=== PATIENT | female | born 1935 | race Caucasian/White ===

== ENCOUNTER → 2017-01-04 | Outpatient (CLI) | payer MEDICARE ==
[~2017-01-04] MED LIST: ASPI325T; AVAP75TA5; COLA100C2; CORE3.12; LASI40TA; LIPI80TA; NITR0.4S; PEPC40TA; PLAV75TA2; SYNT88TA
[2017-01-04 09:50] LABS: FREE T4 1.14 NG/DL (0.76-1.46)
== END ==
LOC: M LAB 08:46
PROVIDERS: ATTEND Internal Medicine Endocrinology, Diabetes & Metabolism
DX: C73 Malignant neoplasm of thyroid gland (principal); E89.0 Postprocedural hypothyroidism

== ENCOUNTER → 2017-03-06 | Outpatient (REF) | payer MEDICARE | LOC: M LAB REF 09:35 | PROVIDERS: ATTEND Physician Assistant | DX: J02.9 Acute pharyngitis, unspecified (principal) ==

== ENCOUNTER → 2017-06-28 | Outpatient (CLI) | payer MEDICARE ==
[2017-06-28 11:20] LABS: FREE T4 1.18 NG/DL (0.76-1.46)
== END ==
LOC: M LAB 10:20
PROVIDERS: ATTEND Internal Medicine Endocrinology, Diabetes & Metabolism
DX: C73 Malignant neoplasm of thyroid gland (principal)

== ENCOUNTER → 2017-09-30 | Outpatient (CLI) | payer MEDICARE ==
--- NOTE | 2017-09-30 11:08 | REP ---
CAROTID ULTRASOUND: Real-time ultrasound evaluation and duplex Doppler interrogation of the extracranial carotid vasculature is performed. There is again mild to moderate plaquing and narrowing in the right carotid bulb and internal carotid artery without elevation of the peak systolic velocity, compatible with luminal narrowing less than 50%. Occlusion is again seen of the left internal carotid artery. There is normal direction of flow in the right vertebral artery. The left vertebral artery could not be visualized. RIGHT LEFT PK Systolic ICA 99.3 cm/s 0 End Diastolic ICA 28.5 0 PK Systolic CCA 69.5 55.3 PK Systolic ECA 84.2 90.7 ICA/CCA Ratio 1.43 0 IMPRESSION: There is again noted to be occlusion of the left internal carotid artery as seen on prior study of 09/22/2016. Luminal narrowing right ICA less than 50%. Signed by Galo Escobar MD 09/30/2017 03:47 P
== END ==
LOC: M RAD 09:42
PROVIDERS: ATTEND Surgery Vascular Surgery
DX: I65.22 Occlusion and stenosis of left carotid artery (principal)

== ENCOUNTER → 2017-12-21 | Outpatient (CLI) | payer MEDICARE ==
[2017-12-21 11:28] LABS: FREE T4 1.27 NG/DL (0.76-1.46); THYROID STIMULATING HORMONE 0.645 uIU/ML (0.358-3.740)
[2017-12-23 14:11] LABS: THRYOGLOBULIN ANTIBODIES (ATA) < 1.0 IU/mL (0.0-0.9); THYROGLOBULIN QUANTITATIVE 20.4 ng/mL (1.5-38.5)
== END ==
LOC: M LAB 09:48
DX: C73 Malignant neoplasm of thyroid gland (principal)
CPT/HCPCS: 84443

== ENCOUNTER → 2018-01-12 | Outpatient (CLI) | payer MEDICARE ==
[2018-01-12 08:37] LABS: BASO # 0.1 10^3/uL (0.0-0.2); BASO % 0.8 % (0.0-1.0); EOS # 0.2 10^3/uL (0.0-0.50); EOS % 2.5 % (0.0-3.0); HEMATOCRIT 45.3 % (36.0-47.0); HEMOGLOBIN 15.3 g/dl (12.0-16.0); IMMATURE GRANULOCYTE % 0.3 % (0-3.0); LYMPH # 1.8 10^3/uL (1.5-4.5); MEAN CORPUSCULAR HEMOGLOBIN 30.7 pg (27.0-33.0); MEAN CORPUSCULAR HGB CONC 33.8 g/dl (32.0-36.5); MONO # 0.7 10^3/uL (0.0-0.8); MONO % 10.3 % (0.0-5.0); NEUTROPHILS # 3.9 10^3/uL (1.8-7.7); NEUTROPHILS % 59.1 % (36.0-66.0); PLATELET COUNT, AUTOMATED 239 10^3/uL (150-450); RED BLOOD COUNT 4.98 10^6/uL (4.00-5.40); RED CELL DISTRIBUTION WIDTH 12.9 % (11.5-14.5); WHITE BLOOD COUNT 6.5 10^3/uL (4.0-10.0)
[2018-01-12 09:03] LABS: ALT/SGPT 28 U/L (12-78); ANION GAP 6 MEQ/L (8-16); BLOOD UREA NITROGEN 16 MG/DL (7-18); CALCIUM LEVEL 8.6 MG/DL (8.8-10.2); CARBON DIOXIDE LEVEL 31 MEQ/L (21-32); CHLORIDE LEVEL 105 MEQ/L (98-107); CHOLESTEROL LEVEL 144 MG/DL (<200); CHOLESTEROL RISK RATIO 2.823 (<5); CPK CREATINE PHOSPHOKINASE 79 U/L (26-192); CREATININE FOR GFR 0.62 MG/DL (0.55-1.30); GLOMERULAR FILTRATION RATE > 60.0 (>32); GLUCOSE, FASTING 101 MG/DL (70-100); HDL CHOLESTEROL 51 MG/DL (>40); NON-HDL-C 93 MG/DL; SODIUM LEVEL 142 MEQ/L (136-145); TRIGLYCERIDES LEVEL 245 MG/DL (<150)
[2018-01-12 09:17] LABS: ESTIMATED AVERAGE GLUCOSE 140 MG/DL (60-110); HEMOGLOBIN A1c 6.5 %
== END ==
LOC: M LAB 08:11
DX: I10 Essential (primary) hypertension (principal); E78.00 Pure hypercholesterolemia, unspecified; E11.9 Type 2 diabetes mellitus without complications
CPT/HCPCS: 84460

== ENCOUNTER → 2018-05-09 | Outpatient (REF) | payer MEDICARE ==
[2018-05-09 20:31] LABS: TOTAL PROTEIN 7.6 GM/DL (6.4-8.2)
[2018-05-10 13:29] LABS: ALBUMIN 4.35 GM/DL (3.29-5.55); ALBUMIN % 57.3 % (55.8-66.1); ALPHA-1-GLOBULIN % 3.9 % (2.9-4.9); ALPHA-2-GLOBULINS 0.86 GM/DL (0.42-0.99); ALPHA-2-GLOBULINS % 11.3 % (7.1-11.8); BETA-1-GLOBULINS 0.47 GM/DL (0.28-0.60); BETA-1-GLOBULINS % 6.2 % (4.7-7.2); BETA-2-GLOBULINS 0.45 GM/DL (0.19-0.55); BETA-2-GLOBULINS % 5.9 % (3.2-6.5); GAMMA GLOBULIN % 15.4 % (11.1-18.8); GAMMA GLOBULINS 1.17 GM/DL (0.65-1.58)
== END ==
LOC: M LAB REF 17:15
DX: M25.50 Pain in unspecified joint (principal); M85.9 Disorder of bone density and structure, unspecified
CPT/HCPCS: 84165

== ENCOUNTER → 2018-07-17 | Outpatient (CLI) | payer MEDICARE ==
[2018-07-17 11:48] LABS: FREE T4 1.25 NG/DL (0.76-1.46); THYROID STIMULATING HORMONE 0.486 uIU/ML (0.358-3.740)
[2018-07-19 10:13] LABS: THRYOGLOBULIN ANTIBODIES (ATA) < 1.0 IU/mL (0.0-0.9); THYROGLOBULIN QUANTITATIVE 19.4 ng/mL (1.5-38.5)
== END ==
LOC: M LAB 10:10
DX: C73 Malignant neoplasm of thyroid gland (principal)
CPT/HCPCS: 84443

== ENCOUNTER → 2018-09-15 | Outpatient (CLI) | payer MEDICARE | LOC: M RAD 09:58 | DX: I65.23 Occlusion and stenosis of bilateral carotid arteries (principal) | CPT/HCPCS: 93880 ==

== ENCOUNTER → 2018-10-18 | Outpatient (CLI) | payer MEDICARE ==
[2018-10-18 10:29] LABS: ESTIMATED AVERAGE GLUCOSE 143 MG/DL (60-110); HEMOGLOBIN A1c 6.6 %
[2018-10-18 10:43] LABS: ALBUMIN 3.9 GM/DL (3.2-5.2); ALBUMIN/GLOBULIN RATIO 1.08 (1.00-1.93); ALKALINE PHOSPHATASE 132 U/L (45-117); ALT/SGPT 28 U/L (12-78); ANION GAP 6 MEQ/L (8-16); AST/SGOT 19 U/L (7-37); BILIRUBIN,TOTAL 0.7 MG/DL (0.2-1.0); BLOOD UREA NITROGEN 14 MG/DL (7-18); CALCIUM LEVEL 8.4 MG/DL (8.8-10.2); CARBON DIOXIDE LEVEL 31 MEQ/L (21-32); CHLORIDE LEVEL 105 MEQ/L (98-107); CHOLESTEROL LEVEL 167 MG/DL (<200); CHOLESTEROL RISK RATIO 3.479 (<5); CPK CREATINE PHOSPHOKINASE 96 U/L (26-192); CREATININE FOR GFR 0.66 MG/DL (0.55-1.30); GLOMERULAR FILTRATION RATE > 60.0 (>32); GLUCOSE, FASTING 110 MG/DL (70-100); HDL CHOLESTEROL 48 MG/DL (>40); LDL CHOLESTEROL 49 MG/DL (<100); NON-HDL-C 119 MG/DL; SODIUM LEVEL 142 MEQ/L (136-145); TOTAL PROTEIN 7.5 GM/DL (6.4-8.2); TRIGLYCERIDES LEVEL 351 MG/DL (<150)
== END ==
LOC: M LAB 09:41
DX: E11.9 Type 2 diabetes mellitus without complications (principal); I10 Essential (primary) hypertension; E78.5 Hyperlipidemia, unspecified
CPT/HCPCS: 82550

== ENCOUNTER → 2018-12-19 | Outpatient (CLI) | payer MEDICARE ==
[2018-12-19 12:14] LABS: FREE T4 1.35 NG/DL (0.76-1.46); THYROID STIMULATING HORMONE 0.172 uIU/ML (0.358-3.740)
[2018-12-20 09:24] LABS: THYROGLOBULIN ANTIBODY < 15.0 U/ML (<60.0)
[2018-12-20 10:41] LABS: THRYOGLOBULIN ANTIBODIES (ATA) < 1.0 IU/mL (0.0-0.9)
== END ==
LOC: M LAB 10:09
PROVIDERS: ATTEND Internal Medicine Endocrinology, Diabetes & Metabolism
DX: C73 Malignant neoplasm of thyroid gland (principal)

== ENCOUNTER → 2019-03-20 | Outpatient (CLI) | payer MEDICARE ==
[2019-03-20 11:26] LABS: FREE T4 1.09 NG/DL (0.76-1.46); THYROID STIMULATING HORMONE 0.532 uIU/ML (0.358-3.740)
== END ==
LOC: M LAB 10:12
PROVIDERS: ATTEND Internal Medicine Endocrinology, Diabetes & Metabolism
DX: C73 Malignant neoplasm of thyroid gland (principal)

== ENCOUNTER → 2019-03-27 | Outpatient (CLI) | payer MEDICARE ==
[2019-03-27 13:52] LABS: HEMATOCRIT 46.7 % (36.0-47.0); HEMOGLOBIN 15.3 g/dl (12.0-15.5); MEAN CORPUSCULAR HEMOGLOBIN 30.9 pg (27.0-33.0); MEAN CORPUSCULAR HGB CONC 32.8 g/dl (32.0-36.5); MEAN CORPUSCULAR VOLUME 94.3 fl (80.0-96.0); PLATELET COUNT, AUTOMATED 231 10^3/uL (150-450); RED BLOOD COUNT 4.95 10^6/uL (4.00-5.40); WHITE BLOOD COUNT 7.9 10^3/uL (4.0-10.0)
[2019-03-27 14:18] LABS: BLOOD UREA NITROGEN 13 MG/DL (7-18); CALCIUM LEVEL 8.7 MG/DL (8.8-10.2); CARBON DIOXIDE LEVEL 26 MEQ/L (21-32); CHLORIDE LEVEL 108 MEQ/L (98-107); CREATININE FOR GFR 0.77 MG/DL (0.55-1.30); GLOMERULAR FILTRATION RATE > 60.0 (>32); GLUCOSE, FASTING 120 MG/DL (70-100); MAGNESIUM LEVEL 1.9 MG/DL (1.8-2.4); POTASSIUM SERUM 3.9 MEQ/L (3.5-5.1); SODIUM LEVEL 141 MEQ/L (136-145)
== END ==
LOC: M LAB 13:16
PROVIDERS: ATTEND Internal Medicine
DX: I48.91 Unspecified atrial fibrillation (principal)

== ENCOUNTER → 2019-07-09 | Outpatient (CLI) | payer MEDICARE ==
[2019-07-09 08:08] LABS: BASO % 0.6 % (0.0-1.0); EOS # 0.2 10^3/uL (0.0-0.50); EOS % 2.3 % (0.0-3.0); HEMATOCRIT 45.9 % (36.0-47.0); HEMOGLOBIN 15.4 g/dl (12.0-15.5); LYMPH # 1.8 10^3/uL (1.5-4.5); LYMPH % 25.7 % (24.0-44.0); MEAN CORPUSCULAR HEMOGLOBIN 31.8 pg (27.0-33.0); MEAN CORPUSCULAR HGB CONC 33.6 g/dl (32.0-36.5); MEAN CORPUSCULAR VOLUME 94.6 fl (80.0-96.0); MONO # 0.7 10^3/uL (0.0-0.8); MONO % 9.5 % (0.0-5.0); NEUTROPHILS # 4.3 10^3/uL (1.8-7.7); NEUTROPHILS % 61.6 % (36.0-66.0); PLATELET COUNT, AUTOMATED 228 10^3/uL (150-450); RED BLOOD COUNT 4.85 10^6/uL (4.00-5.40); WHITE BLOOD COUNT 6.9 10^3/uL (4.0-10.0)
[2019-07-09 08:37] LABS: BLOOD UREA NITROGEN 13 MG/DL (7-18); CALCIUM LEVEL 8.6 MG/DL (8.8-10.2); CARBON DIOXIDE LEVEL 26 MEQ/L (21-32); CHLORIDE LEVEL 106 MEQ/L (98-107); CREATININE FOR GFR 0.63 MG/DL (0.55-1.30); GLOMERULAR FILTRATION RATE > 60.0 (>32); GLUCOSE, FASTING 103 MG/DL (70-100); POTASSIUM SERUM 4.5 MEQ/L (3.5-5.1); SODIUM LEVEL 142 MEQ/L (136-145)
[2019-07-09 10:05] LABS: HEMOGLOBIN A1c 6.2 %
== END ==
LOC: M LAB 07:34
PROVIDERS: ATTEND Internal Medicine
DX: I10 Essential (primary) hypertension (principal); E11.40 Type 2 diabetes mellitus with diabetic neuropathy, unspecified

== ENCOUNTER → 2019-09-19 | Outpatient (CLI) | payer MEDICARE ==
--- NOTE | 2019-09-19 12:13 | REP ---
DUPLEX CAROTID SONOGRAPHY: HISTORY: Occlusion and stenosis. History of left internal carotid artery occlusion. Comparison study September 15, 2018. FINDINGS: Antegrade flow was observed in both vertebral arteries. RIGHT CAROTID: The right common carotid artery shows mixed plaquing. There is mild to moderate mixed plaquing in the bulb and proximal ICA on the right side. Color flow and spectral Doppler interrogation are unremarkable on the right. Velocity Chart, Right Carotid: PSV EDV Right CCA 62 cm/s Right ICA 104 cm/s 35 cm/s Right ECA 93 cm/s Right ICA/CCA ratio normal 1.7. IMPRESSION: Less than 50% category narrowing in the right ICA by Doppler velocity criteria. LEFT CAROTID: Left common carotid artery shows mild mixed plaquing. The left ICA is again noted to be occluded. There is plaquing in the bulb. Velocity Chart Left Carotid: PSV EDV Left CCA 37 cm/s Left ICA 0 0 Left ECA 83 cm/s Left ICA/CCA ratio 0. IMPRESSION: Occlusion of the left ICA Velocities have not increased significantly on the right since the prior study. Electronically Signed by Reggie Sommers MD 09/19/2019 02:15 P
== END ==
LOC: M RAD 10:16
PROVIDERS: ATTEND Surgery Vascular Surgery
DX: I65.23 Occlusion and stenosis of bilateral carotid arteries (principal); E89.0 Postprocedural hypothyroidism

== ENCOUNTER → 2019-09-19 | Outpatient (CLI) | payer MEDICARE ==
[2019-09-19 13:05] LABS: FREE T4 1.29 NG/DL (0.76-1.46); THYROID STIMULATING HORMONE 0.988 uIU/ML (0.358-3.740)
== END ==
LOC: M LAB 11:29
PROVIDERS: ATTEND Internal Medicine Endocrinology, Diabetes & Metabolism
DX: E89.0 Postprocedural hypothyroidism (principal)

== ENCOUNTER → 2019-10-08 | Outpatient (CLI) | payer MEDICARE ==
[2019-10-08 08:52] LABS: BASO # 0.1 10^3/uL (0.0-0.2); BASO % 0.9 % (0.0-1.0); EOS # 0.1 10^3/uL (0.0-0.5); EOS % 1.9 % (0.0-3.0); HEMATOCRIT 50.4 % (36.0-47.0); LYMPH # 1.8 10^3/uL (1.5-5.0); LYMPH % 33.8 % (24.0-44.0); MEAN CORPUSCULAR HEMOGLOBIN 30.8 pg (27.0-33.0); MEAN CORPUSCULAR HGB CONC 31.7 g/dl (32.0-36.5); MEAN CORPUSCULAR VOLUME 96.9 fl (80.0-96.0); MONO # 0.5 10^3/uL (0.0-0.8); MONO % 8.8 % (0.0-5.0); NEUTROPHILS # 2.9 10^3/uL (1.5-8.5); NEUTROPHILS % 54.2 % (36.0-66.0); PLATELET COUNT, AUTOMATED 235 10^3/uL (150-450); WHITE BLOOD COUNT 5.3 10^3/uL (4.0-10.0)
[2019-10-08 09:17] LABS: ALBUMIN 4.2 GM/DL (3.2-5.2); ALT/SGPT 33 U/L (12-78); BILIRUBIN,TOTAL 1.2 MG/DL (0.2-1.0); BLOOD UREA NITROGEN 13 MG/DL (7-18); CARBON DIOXIDE LEVEL 29 MEQ/L (21-32); CHLORIDE LEVEL 106 MEQ/L (98-107); CHOLESTEROL LEVEL 147 MG/DL (<200); CREATININE FOR GFR 0.82 MG/DL (0.55-1.30); GLOMERULAR FILTRATION RATE > 60.0 (>32); GLUCOSE, FASTING 94 MG/DL (70-100); HDL CHOLESTEROL 70 MG/DL (>40); LDL CHOLESTEROL 37 MG/DL (<100); NON-HDL-C 77 MG/DL; SODIUM LEVEL 143 MEQ/L (136-145); TOTAL PROTEIN 7.9 GM/DL (6.4-8.2); TRIGLYCERIDES LEVEL 201 MG/DL (<150)
[2019-10-08 10:21] LABS: HEMOGLOBIN A1c 6.2 %
== END ==
LOC: M LAB 07:48
PROVIDERS: ATTEND Internal Medicine
DX: I48.20 Chronic atrial fibrillation, unspecified (principal); I10 Essential (primary) hypertension; E03.9 Hypothyroidism, unspecified; E11.40 Type 2 diabetes mellitus with diabetic neuropathy, unspecified; E78.00 Pure hypercholesterolemia, unspecified

== ENCOUNTER 2019-10-18 14:21 | Inpatient (IN) | payer MEDICARE ==
[~2019-10-18] VITALS: Ht 154.9 cm; Wt 68.4 kg
[2019-10-18] MEDS ORDERED: ELIQ5TAB PO (14:34)
[2019-10-18] MEDS ORDERED: SPIR-10 PO (14:34)
[2019-10-18] MEDS ORDERED: GABA600T4 PO (14:34)
[2019-10-18] MEDS ORDERED: AMLO5TAB6 PO (14:34)
[2019-10-18] MEDS ORDERED: COQ-100C5 PO (14:34)
[2019-10-18] MEDS ORDERED: ONDA4TAB6 PO (14:34)
[2019-10-18] MEDS ORDERED: LOSA50TA88 PO (14:34)
[2019-10-18] MEDS ORDERED: NITR0.4S14 SL (14:34)
[2019-10-18] MEDS ORDERED: CENT1TAB PO (14:34)
[2019-10-18] MEDS ORDERED: DIAZ5TAB PO (14:34)
[2019-10-18] MEDS ORDERED: ECOT81TA5 PO (14:34)
[2019-10-18] MEDS ORDERED: VOLT1GEL15 TOP (14:34)
--- NOTE | 2019-10-18 15:11 | REP ---
Two-view chest: 10/18/2019. Indication: Dyspnea. Comparison: 08/08/2016. Findings: There is no air space consolidation. No pleural effusion or pneumothorax are present. Postoperative sequelae are noted status post median sternotomy. Cardiomediastinal silhouette is stable. Small granuloma within the right lung base is unchanged. Impression: No acute cardiopulmonary process. Electronically Signed by César Yang DO 10/18/2019 03:03 P
[2019-10-18 15:37] LABS: BASO % 0.5 % (0.0-1.0); EOS % 0.5 % (0.0-3.0); HEMATOCRIT 43.9 % (36.0-47.0); HEMOGLOBIN 14.6 g/dl (12.0-15.5); LYMPH % 12.1 % (24.0-44.0); MEAN CORPUSCULAR HEMOGLOBIN 31.5 pg (27.0-33.0); MEAN CORPUSCULAR HGB CONC 33.3 g/dl (32.0-36.5); MEAN CORPUSCULAR VOLUME 94.8 fl (80.0-96.0); MONO # 0.8 10^3/uL (0.0-0.8); MONO % 9.9 % (0.0-5.0); NEUTROPHILS # 6.2 10^3/uL (1.5-8.5); NEUTROPHILS % 76.8 % (36.0-66.0); PLATELET COUNT, AUTOMATED 182 10^3/uL (150-450); RED BLOOD COUNT 4.63 10^6/uL (4.00-5.40); WHITE BLOOD COUNT 8.1 10^3/uL (4.0-10.0)
[2019-10-18 15:54] LABS: BLOOD UREA NITROGEN 9 MG/DL (7-18); CARBON DIOXIDE LEVEL 28 MEQ/L (21-32); CHLORIDE LEVEL 106 MEQ/L (98-107); CREATININE FOR GFR 0.74 MG/DL (0.55-1.30); GLOMERULAR FILTRATION RATE > 60.0 (>32); GLUCOSE, FASTING 118 MG/DL (70-100); POTASSIUM SERUM 3.5 MEQ/L (3.5-5.1); SODIUM LEVEL 140 MEQ/L (136-145)
[2019-10-18 16:09] LABS: INFLUENZA A AMPLIFICATION NEGATIVE (NEGATIVE); INFLUENZA B AMPLIFICATION NEGATIVE (NEGATIVE)
[2019-10-18] MEDS ORDERED: ISOVUE-370 76% 100ML VIAL (Q9967) As Ordered ONE (16:10)
--- NOTE | 2019-10-18 16:36 | REP ---
Clinical: Shortness of breath . Technique: Axial contrast enhanced images from the thoracic inlet to the upper abdomen using 100 ml Isovue 370 intravenous contrast material with multiplanar re-formations. Findings: Satisfactory enhancement of the pulmonary vasculature is achieved and no filling defects are identified to suggest pulmonary embolus. Atherosclerotic changes noted to the thoracic aorta without aneurysm or dissection. Cardiomegaly is appreciated with prominent pulmonary vasculature suggesting pulmonary vascular congestion along with subtle ground-glass opacities which may reflect a very early pulmonary edema. Further evaluation of the bilateral lung madrigal demonstrates minimal chronic changes along with calcified granuloma in the right base. No adenopathy. No effusion. No pneumothorax. Musculoskeletal structures without focal osseous abnormality. Impression: No evidence for pulmonary embolus. Cardiomegaly with early pulmonary vascular congestion/edema is suggested. No acute consolidation. No effusion. Electronically Signed by Juan J Marrero MD 10/18/2019 04:28 P
[2019-10-18 17:42] LABS: NT-PRO BNP 1244 PG/ML (<450)
[2019-10-18] MEDS: AZELASTINE 137MCG NASAL SPY 30 ML (ASTELIN) SCH (18:17)
--- NOTE | 2019-10-18 18:21 | ECGEPIP ---
[facility] - ED Test Date: 2019-10-18 Pat Name: HOLLEY KAN Department: Room: - Gender: Female Renal Nurse: JKb : 1935 Requested By: FERNANDO Bellamy Order Number: [id number] Reading MD: Mayank Blanton Measurements Intervals [place] Rate: 109 P: WV: 0 QRS: 75 QRSD: 109 T: 50 QT: 349 QTc: 471 Interpretive Statements ATRIAL FIBRILLATION WITH RAPID VENTRICULAR RESPONSE INDETERMINATE AXIS MINIMAL ST DEPRESSION RHYTHM/RATE CHANGE COMPARED TO 08/08/16 Electronically Signed on 10-18-2019 18:21:22 EST by Mayank Blanton
[2019-10-18] MEDS ORDERED: METOPROLOL 5 MG/5 ML VIAL IV STA (18:36)
[2019-10-18 19:11] LABS: CK-MB VALUE MASS < 1.0 NG/ML (<3.6); CPK CREATINE PHOSPHOKINASE 68 U/L (26-192); MB/CK RELATIVE INDEX 1.47 (< OR =4); THYROID STIMULATING HORMONE 0.772 uIU/ML (0.358-3.740); TROPONIN I < 0.02 NG/ML (< 0.10)
--- NOTE | 2019-10-18 19:18 | HPEPDOC ---
[facility] Medical History & Physical Date of Admission Oct 18, 2019 Date of Service: Oct 18, 2019 Primary Care Physician: Connie Hogue Attending Physician: CHRISTINA WEST MD History and Physical TIME OF SERVICE: 8:20 PM CHIEF COMPLAINT: Congestion HISTORY OF PRESENT ILLNESS: This is an 83 old female who presents with complaints of congestion affecting her chest and head, associated with sneezing, cough, shortness of breath, fever and chills for 3 days despite taking amoxicillin. She called her PCP because her symptoms were not improving, and was instructed to come to the ER for evaluation. REVIEW OF SYSTEMS: 12 point review of systems negative except as listed in HPI PAST MEDICAL/ SURGICAL HISTORY: CAD/status post angioplasty with placement of 3 stents/CABG. Dyslipidemia. Chronic hypertension. Atrial fibrillation. Status post carotid endarterectomy. Prediabetes ( A1c 6.2). Hypothyroidism status post thyroidectomy. SOCIAL HISTORY: She doesn't smoke. She lives alone FAMILY HISTORY: CAD. Diabetes. ALLERGIES: Please see below. HOME MEDICATIONS: Please see below. PHYSICAL EXAMINATION: VITAL SIGNS: Please see below. GENERAL APPEARANCE: Well-nourished, well-developed, not in apparent distress, does not appear toxic HEENT: Normocephalic, atraumatic, mucous membranes moist and pink. Nasal cannula in place CARDIOVASCULAR: Slightly tachycardic, no murmurs, rubs or gallops. Extremities warm and well-perfused. There is no lower extremity edema LUNGS: Clear to auscultation bilaterally on room air ABDOMEN: Positive bowel sounds. Abdomen is soft and nontender on palpation MUSCULOSKELETAL: Range of motion is intact in all 4 extremities INTEGUMENT: Skin is not flushed NEUROLOGICAL: Cranial nerves 2-12 are grossly intact. Speech is not dysarthric PSYCHIATRIC: Alert and oriented, able to understand and follow commands LABORATORY DATA: See below. IMAGING: Chest x-ray "Impression: No acute cardiopulmonary process." CT chest "Impression:No evidence for pulmonary embolus.Cardiomegaly with early pulmonary vascular congestion/edema is suggested.No acute consolidation. No effusion." MICROBIOLOGY: Please see below. ASSESSMENT: Ms. Mariano is a 83 -year-old with a past medical history of CAD/CABG, dyslipidemia, chronic hypertension, atrial fibrillation and hypothyroidism who will be admitted for management of A. fib with RVR, likely due to RSV infection. PLAN: 1. Atrial fibrillation with RVR. This episode was likely triggered by RSV Her HR improved transiently after she received IV metoprolol in the ER. She does not take Cardizem, metoprolol tartrate, or digoxin at home. Despite having CABG, based on her most recent echo done in 2008 she does not have coexisting systolic dysfunction Plan: Admit to telemetry/resume apixaban /IV Cardizem when necessary for heart rate above 110 / if she remains in RVR after her URI symptoms have resolved, the daytime team may consider transitioning her to PO digoxin 2. RSV. Plan: Supplemental Oxygen/will not order PRN bronchodilators to avoid worsening tachycardia / Tessalon pearls 3. Elevated BNP. The acute elevation in BNP is, likely due to combination of to rapid A. fib, older age and female sex Clinically she appears compensated. Chest x-ray did not show congestion Her echo from 2008 did not show evidence of systolic dysfunction Plan: Follow-up is and os/daily weights/ She can follow-up with her PCP for an echo on an outpatient basis 4. Chronic CAD/CABG / Dyslipidemia. Plan: Continue aspirin, atorvastatin, carvedilol, nitroglycerin when necessary 5. Chronic hypertension. Plan: Continue amlodipine, carvedilol, furosemide, losartan, and spironolactone 6. Hypothyroidism. Status post thyroidectomy Plan: Continue levothyroxine No need for DVT prophylaxis as she is on a NOAC for A. fib Disposition likely home after more than 2 midnight stay Vital Signs Vital Signs Date Time Temp Pulse Resp B/P (MAP) Pulse Ox O2 Delivery O2 Flow Rate FiO2 10/18/19 18:46 112 132/88 10/18/19 18:30 96 Room Air 10/18/19 16:34 98.7 10/18/19 16:28 20 Laboratory Data Labs 24H Laboratory Tests 2 10/18/19 15:25: Immature Granulocyte % (Auto) 0.2, Neutrophils (%) (Auto) 76.8H, Lymphocytes (%) (Auto) 12.1L, Monocytes (%) (Auto) 9.9H, Eosinophils (%) (Auto) 0.5, Basophils (%) (Auto) 0.5, Neutrophils # (Auto) 6.2, Lymphocytes # (Auto) 1.0L, Monocytes # (Auto) 0.8, Eosinophils # (Auto) 0.0, Basophils # (Auto) 0.0, Nucleated Red Blood Cells % (auto) 0.0, Anion Gap 6L, Glomerular Filtration Rate > 60.0, Calcium Level 8.0L, SA-Mcn-L-Type Natriuretic Peptide 1244H 10/18/19 15:29: Influenza Type A (RT-PCR) NEGATIVE, Influenza Type B (RT-PCR) NEGATIVE 10/18/19 18:28: Total Creatine Kinase 68, Creatine Kinase MB < 1.0, Creatine Kinase MB Relative Index 1.47, Troponin I < 0.02, Thyroid Stimulating Hormone (TSH) 0.772 CBC/BMP Laboratory Tests 10/18/19 15:25 Microbiology Microbiology 10/18/19 Respiratory Virus Panel (PCR) ([facility]), Received Pending Home Medications Scheduled Amoxicillin (Amoxicillin) 500 Mg Capsule, 500 MG PO TID STARTED 7 DAYS ON 10/17 Apixaban (Eliquis) 5 Mg Tablet, 5 MG PO BID Aspirin (Ecotrin) 81 Mg Tablet.dr, 81 MG PO DAILY Atorvastatin Calcium (Atorvastatin Calcium) 80 Mg Tablet, 80 MG PO QHS Azelastine HCl (Azelastine HCl) 0.1% [place].pump, 2 SPRAY NA BID Benzonatate (Benzonatate) 100 Mg Capsule, 200 MG PO Q8H Carvedilol (Carvedilol) 3.125 Mg Tablet, 3.125 MG PO BID Furosemide (Furosemide) 40 Mg Tablet, 40 MG PO 3XW TU, , Gabapentin (Gabapentin) 600 Mg Tablet, 600 MG PO QHS Levothyroxine Sodium (Synthroid) 88 Mcg Tablet, 88 MCG PO DAILY BRAND SYNTHROID Losartan Potassium (Losartan Potassium) 50 Mg Tablet, 50 MG PO DAILY Multivit-Min/FA/Lycopen/Lutein (Centrum Silver Tablet) 1 Each Tablet, 1 TAB PO DAILY Spironolactone (Spironolactone) 25 Mg Tablet, 12.5 MG PO DAILY Ubidecarenone (Coq-10) 100 Mg Capsule, 100 MG PO DAILY Scheduled PRN Diazepam (Diazepam) 5 Mg Tablet, 5 MG PO BID PRN for anxiety Diclofenac Sodium (Voltaren) 100 Gm Gel..gram., 1 APPLIC TOP TID PRN for PAIN APPLIED TO KNEES Docusate Sodium (Docusate Sodium) 100 Mg Capsule, 100 MG PO DAILY PRN for CONSTIPATION Famotidine (Famotidine) 20 Mg Tablet, 20 MG PO BID PRN for INDIGESTION Nitroglycerin (Nitroglycerin) 0.4 Mg Tab.subl, 1 TAB SL NITRO PRN for CHEST PAIN Ondansetron (Ondansetron Odt) 4 Mg Tab.rapdis, 4 MG PO Q6H PRN for nausea/vomiting Allergies Coded Allergies: No Known Allergies (Unverified , 02/03/04) A-FIB/CHADSVASC A-FIB History Current/History of A-Fib/PAF?: Yes Current PO Anticoag Therapy: Yes CHRISTINA WEST MD Oct 18, 2019 19:18
[2019-10-18] MEDS ORDERED: FUROSEMIDE 20 MG/2 ML VIAL (J1940) IV ONE (19:45)
[2019-10-18] MEDS ORDERED: CARV3.12 PO (19:49)
[2019-10-18] MEDS ORDERED: FURO40TA2 PO (19:49)
[2019-10-18] MEDS ORDERED: FAMO1TAB11 PO (19:49)
[2019-10-18] MEDS ORDERED: ATOR80TA59 PO (19:49)
[2019-10-18] MEDS ORDERED: SYNT88TA2 PO (19:49)
[2019-10-18] MEDS ORDERED: DOCU100C17 PO (19:49)
[2019-10-18] MEDS ORDERED: AMOX500C PO (19:51)
[2019-10-18] MEDS ORDERED: FAMOTIDINE 20 MG TAB PO PRN (20:00)
[2019-10-18] MEDS ORDERED: DOCUSATE SODIUM 100 MG CAP PO PRN (20:00)
[2019-10-18] MEDS ORDERED: NITROGLYCERIN 0.4 MG SUBL TABLET SL PRN (20:00)
[2019-10-18] MEDS ORDERED: diazePAM 5 MG TAB PO PRN (20:00)
[2019-10-18] MEDS ORDERED: ONDANSETRON 4 MG ORAL DISINTEGRATING TAB (Q0162 PER 1MG) PO PRN (20:00)
[2019-10-18] MEDS: HumaLOG INSULIN (NovoLOG) PER UNIT SC SCH (21:00)
[2019-10-18 21:20] VITALS: BP 130/80
[2019-10-18] MEDS ORDERED: GLUCOSE 4 GM CHEW TABLET PO PRN (22:00)
[2019-10-18] MEDS ORDERED: GLUCAGON FOR INJ 1 MG VIAL (J1610) SC PRN (22:00)
[2019-10-18] MEDS ORDERED: DEXTROSE 50% 50 ML SYRINGE IV PRN (22:00)
[2019-10-18] MEDS: ATORVASTATIN 20 MG TAB PO SCH (22:24)
[2019-10-18] MEDS: BENZONATATE 100 MG CAP PO SCH (22:24)
[2019-10-18] MEDS: APIXABAN 5 MG TAB (ELIQUIS) PO SCH (22:25)
[2019-10-18] MEDS: CARVedilol 3.125 MG TAB PO SCH (22:25)
[2019-10-18] MEDS: GABAPENTIN 300 MG CAP PO SCH (22:25)
[2019-10-19] VITALS (7 sets, daily range): BP systolic 99–131; BP diastolic 59–85
[2019-10-19] MEDS: ACETAMINOPHEN TAB 650MG DOSE (2X325MG) PO PRN ×2 (01:03→20:55)
[2019-10-19] MEDS: BENZONATATE 100 MG CAP PO SCH ×3 (05:25→21:03)
[2019-10-19] MEDS: LEVOTHYROXINE 88MCG TABLET (0.088 MG) PO SCH (05:25)
[2019-10-19 06:10] LABS: HEMOGLOBIN 14.4 g/dl (12.0-15.5); MEAN CORPUSCULAR HEMOGLOBIN 31.2 pg (27.0-33.0); MEAN CORPUSCULAR HGB CONC 33.5 g/dl (32.0-36.5); MEAN CORPUSCULAR VOLUME 93.3 fl (80.0-96.0); PLATELET COUNT, AUTOMATED 177 10^3/uL (150-450); RED BLOOD COUNT 4.61 10^6/uL (4.00-5.40); WHITE BLOOD COUNT 7.6 10^3/uL (4.0-10.0)
[2019-10-19 06:32] LABS: BLOOD UREA NITROGEN 13 MG/DL (7-18); CALCIUM LEVEL 8.4 MG/DL (8.8-10.2); CARBON DIOXIDE LEVEL 29 MEQ/L (21-32); CHLORIDE LEVEL 105 MEQ/L (98-107); CREATININE FOR GFR 0.73 MG/DL (0.55-1.30); GLOMERULAR FILTRATION RATE > 60.0 (>32); GLUCOSE, FASTING 114 MG/DL (70-100); MAGNESIUM LEVEL 2.1 MG/DL (1.8-2.4); POTASSIUM SERUM 3.6 MEQ/L (3.5-5.1); SODIUM LEVEL 138 MEQ/L (136-145)
[2019-10-19] MEDS: HumaLOG INSULIN (NovoLOG) PER UNIT SC SCH ×4 (07:30→20:58)
[2019-10-19] MEDS: ASPIRIN 81 MG ENTERIC TAB PO SCH (09:00)
[2019-10-19] MEDS: CARVedilol 3.125 MG TAB PO SCH ×2 (09:00→20:54)
[2019-10-19] MEDS ORDERED: amLODIPine 5 MG TAB PO SCH (09:00)
[2019-10-19] MEDS: MULTIVITAMINS/MINERALS THERAP 1 TAB PO SCH (10:03)
[2019-10-19] MEDS: SPIRONOLACTONE 12.5MG PER 1/2 TABLET PO SCH (10:03)
[2019-10-19] MEDS: APIXABAN 5 MG TAB (ELIQUIS) PO SCH ×2 (10:03→20:54)
[2019-10-19] MEDS: AZELASTINE 137MCG NASAL SPY 30 ML (ASTELIN) SCH ×2 (10:05→20:56)
[2019-10-19] MEDS: LOSARTAN 50 MG TAB PO SCH (10:05)
[2019-10-19] MEDS ORDERED: ALBUTEROL SULFATE 2.5 MG/0.5 ML INH NEB SOLN NEB PRN (13:30)
--- NOTE | 2019-10-19 14:06 | IPNPDOC ---
Subjective Date Seen The patient was seen on 10/19/19. Subjective Chief Complaint/HPI Says her cough is a little better this morning. It is dry and hacking in nature. No fever or chills, no SOB. still feels very weak. Objective Physical Examination General Exam: Positive: Alert, Cooperative, No Acute Distress Eye Exam: Positive: PERRLA, Conjunctiva & lids normal, EOMI; Negative: Sclera icteric ENT Exam: Positive: Atraumatic, Mucous membr. moist/pink, Pharynx Normal Neck Exam: Positive: Supple; Negative: JVD, thyromegaly Chest Exam: Positive: Clear to auscultation, Normal air movement Heart Exam: Positive: Tachycardic, Irregular Rhythm, Normal S1, Normal S2; Negative: Gallops, Murmurs, Rubs Telemetry: Positive: Atrial fibrillation Abdomen Exam: Positive: Normal bowel sounds, Soft; Negative: Tenderness, Hepatospenomegaly Extremity Exam: Negative: Clubbing, Cyanosis, Edema Skin Exam: Positive: Nl turgor and temperature; Negative: Rash, Breakdown Neuro Exam: Positive: Normal Speech, Strength at 5/5 X4 ext, Normal Tone Psych Exam: Positive: Memory Intact, Oriented x 3 Assessment /Plan Assessment Ms. Mariano is a 83 -year-old with a past medical history of dyslipidemia, hypertension, chronic atrial fibrillation and hypothyroidism after thyroidectomy, CAD/status post angioplasty with placement of 3 stents/CABG, Status post carotid endarterectomy, Prediabetes ( A1c 6.2) admitted for A. fib with RVR ans CHF precipitated by RSV infection. Atrial fibrillation with RVR. rate better controlled at present This episode was likely triggered by RSV Despite having CABG, based on her most recent echo done in 2008 she does not have coexisting systolic dysfunction continue Coreg, eliquis. Blood pressure soft if rate again becomes uncontrolled will give digoxin. URI due to RSV symptomatic management Chronic CAD/CABG / Dyslipidemia. / Plan: Continue aspirin, atorvastatin, carvedilol, nitroglycerin when necessary Chronic hypertension. Continue carvedilol, furosemide, losartan, and spironolactone with hold parameters due to soft Bp at present Hypothyroidism Status post thyroidectomy Continue levothyroxine Plan/VTE VTE Prophylaxis Ordered?: Yes VS, I&O, 24H, Fishbone Vital Signs/I&O Vital Signs Date Time Temp Pulse Resp B/P (MAP) Pulse Ox O2 Delivery O2 Flow Rate FiO2 10/19/19 12:00 99.5 101 18 99/69 (79) 93 10/19/19 04:00 Room Air 10/19/19 00:00 2.0 I&O- Last 24 Hours up to 6 AM 10/19/19 06:00 Intake Total 660 ml Output Total 0 ml Balance 660 ml Laboratory Data 24H LABS Laboratory Tests 2 10/18/19 15:25: Immature Granulocyte % (Auto) 0.2, Neutrophils (%) (Auto) 76.8H, Lymphocytes (%) (Auto) 12.1L, Monocytes (%) (Auto) 9.9H, Eosinophils (%) (Auto) 0.5, Basophils (%) (Auto) 0.5, Neutrophils # (Auto) 6.2, Lymphocytes # (Auto) 1.0L, Monocytes # (Auto) 0.8, Eosinophils # (Auto) 0.0, Basophils # (Auto) 0.0, Nucleated Red Blood Cells % (auto) 0.0, Anion Gap 6L, Glomerular Filtration Rate > 60.0, Calcium Level 8.0L, YT-Eep-B-Type Natriuretic Peptide 1244H 10/18/19 15:29: Influenza Type A (RT-PCR) NEGATIVE, Influenza Type B (RT-PCR) NEGATIVE 10/18/19 18:28: Total Creatine Kinase 68, Creatine Kinase MB < 1.0, Creatine Kinase MB Relative Index 1.47, Troponin I < 0.02, Thyroid Stimulating Hormone (TSH) 0.772 10/18/19 22:12: Bedside Glucose (Misc Panel) 137H 10/19/19 05:53: Nucleated Red Blood Cells % (auto) 0.0, Anion Gap 4L, Glomerular Filtration Rate > 60.0, Calcium Level 8.4L, Magnesium Level 2.1 10/19/19 11:59: Bedside Glucose (Misc Panel) 124H CBC/BMP Laboratory Tests 10/18/19 15:25 10/19/19 05:53 Microbiology Microbiology 10/18/19 Respiratory Virus Panel (PCR) ([facility]) - Final, Complete Respiratory Syncytial Virus MICHAEL FERNANDEZ MD Oct 19, 2019 14:06
[2019-10-19] MEDS: GABAPENTIN 300 MG CAP PO SCH (20:52)
[2019-10-19] MEDS: ATORVASTATIN 20 MG TAB PO SCH (20:52)
[2019-10-20] VITALS: BP 96/54
[2019-10-20 04:00] VITALS: BP 133/80
[2019-10-20] MEDS: BENZONATATE 100 MG CAP PO SCH (06:04)
[2019-10-20] MEDS: LEVOTHYROXINE 88MCG TABLET (0.088 MG) PO SCH (06:04)
[2019-10-20] MEDS: HumaLOG INSULIN (NovoLOG) PER UNIT SC SCH (07:30)
[2019-10-20 08:00] VITALS: BP 131/74
[2019-10-20] MEDS ORDERED: AZEL1SPR3 (08:45)
[2019-10-20] MEDS ORDERED: BENZ-18 PO (08:45)
[2019-10-20] MEDS: APIXABAN 5 MG TAB (ELIQUIS) PO SCH (08:48)
[2019-10-20] MEDS: MULTIVITAMINS/MINERALS THERAP 1 TAB PO SCH (08:48)
[2019-10-20] MEDS: CARVedilol 3.125 MG TAB PO SCH (08:49)
[2019-10-20] MEDS: ASPIRIN 81 MG ENTERIC TAB PO SCH (08:49)
[2019-10-20] MEDS: AZELASTINE 137MCG NASAL SPY 30 ML (ASTELIN) SCH (08:50)
[2019-10-20] MEDS: SPIRONOLACTONE 12.5MG PER 1/2 TABLET PO SCH (08:50)
[2019-10-20] MEDS: LOSARTAN 50 MG TAB PO SCH (08:51)
[2019-10-20] MEDS ORDERED: FUROSEMIDE 40 MG TAB PO SCH (09:00)
--- NOTE | 2019-10-20 11:10 | ECHO ---
DATE OF PROCEDURE: 10/19/2019 DATE OF : 1935 AGE: 83 GENDER: Female. HEIGHT: 61 inches. WEIGHT: 150 pounds, body surface area 1.67 meters squared. LOCATION: Inpatient PCU room 3220. REFERRING PHYSICIAN: Katie Escalona MD INDICATION: Dyspnea/atrial fibrillation. MEASUREMENTS 2D MEASUREMENTS: RV - 4.2 cm LV - 4.4 cm Septum 1.1 cm Posterior wall 1.1 cm Aortic root 3.6 cm LA - 4.4 cm LVEF 65% DOPPLER MEASUREMENTS: AV - 1.50 m/s LVOT - 0.65 m/s LVOT diameter 2.0 cm MV-E 107 Early mitral deceleration time 208 ms E prime medial 5.2 E prime lateral 11.3 Average E/E prime ratio 13; PCWP 18 mmHg PV-0.8 m/s Pulmonary artery acceleration time 80 ms RVSP 46 mmHg IVC - 1.8 cm COMMENTS: Underlying atrial fibrillation with currently controlled ventricular response. No intraventricular conduction disturbance. M-mode and two-dimensional echocardiography was performed with pulsed, continuous wave, color flow and tissue Doppler studies. Normal left ventricular size and wall thickness with flattening of the proximal portion of the septum, but other left ventricular wall segments moved normally or were hyperkinetic with preserved global resting systolic function. Septal wall motion abnormality believed to be related to right ventricular pressure overload. Moderately dilated left atrium with current estimated mean left atrial pressure mildly increased. Mildly dilated and hypokinetic right ventricle with at least moderate pulmonary hypertension. Moderately dilated right atrium but normal IVC size and collapse against an elevated central venous pressure. Mild aortic valvular sclerosis with trace insufficiency. Normal aortic diameters. Normal-appearing mitral valvular apparatus and leaflet excursion with no posterior systolic buckling, yet mild mitral insufficiency. Normal appearing tricuspid valve with severe tricuspid insufficiency. No apparent intracardiac mass or pericardial effusion.
--- NOTE | 2019-10-20 22:03 | DS.PDOC ---
Discharge Summary General Date of Admission Oct 18, 2019 at 19:17 Date of Discharge 10/20/19 Discharge Summary PROCEDURES PERFORMED DURING STAY: [None]. DISCHARGE DIAGNOSES: Viral Upper respiratory tract infection with RSV A fib with rvr due to above CHF exacerbation. SECONDARY DIAGNOSIS: Dyslipidemia, hypertension, chronic atrial fibrillation and hypothyroidism after thyroidectomy, CAD/status post angioplasty with placement of 3 stents/CABG, Status post carotid endarterectomy, Prediabetes ( A1c 6.2) COMPLICATIONS/CHIEF COMPLAINT: A Fib W/Rvr;Chf;Uri. HISTORY OF PRESENT ILLNESS: See history and Physical HOSPITAL COURSE: Ms. Mariano is a 83 -year-old with a past medical history of dyslipidemia, hypertension, chronic atrial fibrillation and hypothyroidism after thyroidectomy, CAD/status post angioplasty with placement of 3 stents/CABG, Status post carotid endarterectomy, Prediabetes ( A1c 6.2) admitted for A. fib w ith RVR and CHF precipitated by RSV infection. Atrial fibrillation with RVR mild Diastolic CHF exacerbation improved after a dose of IV lasix. rate better controlled at present This episode was likely triggered by RSV Despite having CABG, based on her most recent echo done in 2008 she does not have coexisting systolic dysfunction continue Coreg, eliquis. Instructed to take 1 extra dose of lasix today and tomorrow. URI due to RSV symptomatic management with tessalon pearls and nasal spray. Chronic CAD/CABG / Dyslipidemia. / Plan: Continue aspirin, atorvastatin, carvedilol, nitroglycerin when necessary Chronic hypertension. Continue carvedilol, furosemide, losartan, and spironolactone with hold parameters due to soft Bp at present Hypothyroidism Status post thyroidectomy Continue levothyroxine DISCHARGE MEDICATIONS: Please see below. ALLERGIES: Please see below. PHYSICAL EXAMINATION ON DISCHARGE: VITAL SIGNS: Please see below. General Exam: Positive: Alert, Cooperative, No Acute Distress Eye Exam: Positive: PERRLA, Conjunctiva & lids normal, EOMI; Negative: Sclera icteric ENT Exam: Positive: Atraumatic, Mucous membr. moist/pink, Pharynx Normal Neck Exam: Positive: Supple; Negative: JVD, thyromegaly Chest Exam: Positive: Clear to auscultation, Normal air movement Heart Exam: Positive: Tachycardic, Irregular Rhythm, Normal S1, Normal S2; Negative: Gallops, Murmurs, Rubs Telemetry: Positive: Atrial fibrillation Abdomen Exam: Positive: Normal bowel sounds, Soft; Negative: Tenderness, Hepatospenomegaly Extremity Exam: Negative: Clubbing, Cyanosis, Edema Skin Exam: Positive: Nl turgor and temperature; Negative: Rash, Breakdown Neuro Exam: Positive: Normal Speech, Strength at 5/5 X4 ext, Normal Tone Psych Exam: Positive: Memory Intact, Oriented x 3 LABORATORY DATA: Please see below. ACTIVITY: [As tolerated]. DIET: As tolerated DISPOSITION: 01 Home, Self-Care. DISCHARGE INSTRUCTIONS: Follow up PMD in 1 week DISCHARGE CONDITION: [Stable]. TIME SPENT ON DISCHARGE: 35 minutes. Vital Signs/I&Os Vital Signs Date Time Temp Pulse Resp B/P (MAP) Pulse Ox O2 Delivery O2 Flow Rate FiO2 10/20/19 08:00 98.0 118 19 131/74 (93) 93 Room Air 10/19/19 00:00 2.0 I&O- Last 24 Hours up to 6 AM 10/20/19 06:00 Intake Total 1140 ml Output Total 300 ml Balance 840 ml Laboratory Data Labs 24H Laboratory Tests 2 10/20/19 07:51: Bedside Glucose (Misc Panel) 102 FSBS Laboratory Tests Test 10/20/19 07:51 Range/Units Bedside Glucose (Misc Panel) 102 83-110 MG/DL Microbiology Microbiology 10/18/19 Respiratory Virus Panel (PCR) ([facility]) - Final, Complete Respiratory Syncytial Virus Discharge Medications Scheduled Amoxicillin (Amoxicillin) 500 Mg Capsule, 500 MG PO TID, (Reported) STARTED 7 DAYS ON 10/17 Apixaban (Eliquis) 5 Mg Tablet, 5 MG PO BID, (Reported) Aspirin (Ecotrin) 81 Mg Tablet.dr, 81 MG PO DAILY, (Reported) Atorvastatin Calcium (Atorvastatin Calcium) 80 Mg Tablet, 80 MG PO QHS, (Reported) Azelastine HCl (Azelastine HCl) 0.1% [place].pump, 2 SPRAY NA BID Benzonatate (Benzonatate) 100 Mg Capsule, 200 MG PO Q8H Carvedilol (Carvedilol) 3.125 Mg Tablet, 3.125 MG PO BID, (Reported) Furosemide (Furosemide) 40 Mg Tablet, 40 MG PO 3XW, (Reported) , , Gabapentin (Gabapentin) 600 Mg Tablet, 600 MG PO QHS, (Reported) Levothyroxine Sodium (Synthroid) 88 Mcg Tablet, 88 MCG PO DAILY, (Reported) BRAND SYNTHROID Losartan Potassium (Losartan Potassium) 50 Mg Tablet, 50 MG PO DAILY, (Reported) Multivit-Min/FA/Lycopen/Lutein (Centrum Silver Tablet) 1 Each Tablet, 1 TAB PO DAILY, (Reported) Spironolactone (Spironolactone) 25 Mg Tablet, 12.5 MG PO DAILY, (Reported) Ubidecarenone (Coq-10) 100 Mg Capsule, 100 MG PO DAILY, (Reported) Scheduled PRN Diazepam (Diazepam) 5 Mg Tablet, 5 MG PO BID PRN for anxiety, (Reported) Diclofenac Sodium (Voltaren) 100 Gm Gel..gram., 1 APPLIC TOP TID PRN for PAIN, (Reported) APPLIED TO KNEES Docusate Sodium (Docusate Sodium) 100 Mg Capsule, 100 MG PO DAILY PRN for CONSTIPATION, (Reported) Famotidine (Famotidine) 20 Mg Tablet, 20 MG PO BID PRN for INDIGESTION, (Reported) Nitroglycerin (Nitroglycerin) 0.4 Mg Tab.subl, 1 TAB SL NITRO PRN for CHEST PAIN, (Reported) Ondansetron (Ondansetron Odt) 4 Mg Tab.rapdis, 4 MG PO Q6H PRN for nausea/vomiting, (Reported) Allergies Coded Allergies: No Known Allergies (Unverified , 02/03/04) MICHAEL FERNANDEZ MD Oct 20, 2019 22:03
[2019-10-21] MEDS ORDERED: FUROSEMIDE 40 MG TAB PO SCH (09:00)
== END 2019-10-20 12:54 | disposition home or self-care (01) | DRG 308 ==
LOC: M ED 14:21 → M ED INP 19:17 → M PCU 21:19
PROVIDERS: ADMIT Internal Medicine; ATTEND Internal Medicine Nephrology
DX: I48.91 Unspecified atrial fibrillation (principal); I50.31 Acute diastolic (congestive) heart failure; J06.9 Acute upper respiratory infection, unspecified; B97.4 Respiratory syncytial virus as the cause of diseases classified elsewhere; I25.10 Atherosclerotic heart disease of native coronary artery without angina pectoris; Z95.1 Presence of aortocoronary bypass graft; E78.5 Hyperlipidemia, unspecified; I11.0 Hypertensive heart disease with heart failure; R73.03 Prediabetes; E89.0 Postprocedural hypothyroidism; Z79.82 Long term (current) use of aspirin; Z79.01 Long term (current) use of anticoagulants; Z79.899 Other long term (current) drug therapy

== ENCOUNTER → 2020-03-25 | Outpatient (CLI) | payer MEDICARE ==
[~2020-03-25] MED LIST changes: +AMLO5TAB6 PO; +AMOX500C PO; +ATOR80TA59 PO; +AZEL1SPR3; +BENZ-18 PO; +CARV3.12 PO; +CENT1TAB PO; +COQ-100C5 PO; +DIAZ5TAB PO; +DOCU100C17 PO; +ECOT81TA5 PO; +ELIQ5TAB PO; +FAMO1TAB11 PO; +FURO40TA2 PO; +GABA600T4 PO; +LOSA50TA88 PO; +NITR0.4S14 SL; +ONDA4TAB6 PO; +SPIR-10 PO; +SYNT88TA2 PO; +VOLT1GEL15 TOP
[2020-03-25 09:05] LABS: FREE T4 1.35 NG/DL (0.76-1.46); THYROID STIMULATING HORMONE 0.317 uIU/ML (0.358-3.740)
== END ==
LOC: M LAB 07:37
PROVIDERS: ATTEND Internal Medicine Endocrinology, Diabetes & Metabolism
DX: C73 Malignant neoplasm of thyroid gland (principal)

== ENCOUNTER → 2020-07-11 | Outpatient (CLI) | payer MEDICARE ==
[~2020-07-11] MED LIST changes: +AMLO1TAB24 PO; -AMLO5TAB6 PO
[2020-07-11 09:25] LABS: HEMATOCRIT 46.1 % (36.0-47.0); HEMOGLOBIN 15.1 g/dl (12.0-15.5); MEAN CORPUSCULAR HEMOGLOBIN 30.9 pg (27.0-33.0); MEAN CORPUSCULAR HGB CONC 32.8 g/dl (32.0-36.5); MEAN CORPUSCULAR VOLUME 94.5 fl (80.0-96.0); PLATELET COUNT, AUTOMATED 241 10^3/uL (150-450); RED BLOOD COUNT 4.88 10^6/uL (4.00-5.40); WHITE BLOOD COUNT 6.1 10^3/uL (4.0-10.0)
[2020-07-11 09:36] LABS: BLOOD UREA NITROGEN 18 MG/DL (7-18); CALCIUM LEVEL 8.7 MG/DL (8.8-10.2); CARBON DIOXIDE LEVEL 27 MEQ/L (21-32); CHLORIDE LEVEL 107 MEQ/L (98-107); GLOMERULAR FILTRATION RATE > 60.0 (>32); GLUCOSE, FASTING 140 MG/DL (70-100); POTASSIUM SERUM 3.8 MEQ/L (3.5-5.1); SODIUM LEVEL 141 MEQ/L (136-145)
== END ==
LOC: M LAB 08:11
PROVIDERS: ATTEND Physician Assistant
DX: I25.118 Atherosclerotic heart disease of native coronary artery with other forms of angina pectoris (principal)

== ENCOUNTER → 2020-07-17 | Outpatient (CLI) | payer MEDICARE ==
[2020-07-17 11:25] LABS: HEMOGLOBIN 14.1 g/dl (12.0-15.5); MEAN CORPUSCULAR HEMOGLOBIN 31.4 pg (27.0-33.0); MEAN CORPUSCULAR HGB CONC 32.8 g/dl (32.0-36.5); MEAN CORPUSCULAR VOLUME 95.8 fl (80.0-96.0); PLATELET COUNT, AUTOMATED 216 10^3/uL (150-450); RED BLOOD COUNT 4.49 10^6/uL (4.00-5.40)
[2020-07-17 12:12] LABS: HEMOGLOBIN A1c 6.1 %
== END ==
LOC: M LAB 09:19
PROVIDERS: ATTEND Internal Medicine
DX: E11.40 Type 2 diabetes mellitus with diabetic neuropathy, unspecified (principal); I10 Essential (primary) hypertension

== ENCOUNTER → 2020-07-18 | Outpatient (CLI) | payer MEDICARE | LOC: M LABSMTC 10:46 | PROVIDERS: ATTEND Internal Medicine Cardiovascular Disease | DX: Z11.59 Encounter for screening for other viral diseases (principal) | CPT/HCPCS: C9803; U0003 ==

== ENCOUNTER → 2020-09-18 | Outpatient (CLI) | payer MEDICARE ==
[2020-09-18 13:17] LABS: FREE T4 1.31 NG/DL (0.76-1.46); THYROID STIMULATING HORMONE 0.475 uIU/ML (0.358-3.740)
== END ==
LOC: M LAB 11:21
PROVIDERS: ATTEND Internal Medicine Endocrinology, Diabetes & Metabolism
DX: C73 Malignant neoplasm of thyroid gland (principal)

== ENCOUNTER → 2020-09-25 | Outpatient (CLI) | payer MEDICARE ==
--- NOTE | 2020-09-25 13:24 | REP ---
INDICATION: I65.23-CAROTID STENOSIS history of left internal carotid artery occlusion. COMPARISON: Comparison study September 19, 2019.. TECHNIQUE: Real-time ultrasound evaluation and duplex Doppler interrogation of the extracranial carotid vasculature is performed. FINDINGS: Antegrade flow is observed in both vertebral arteries. Right carotid: The right common carotid artery shows diffuse intimal thickening but is otherwise unremarkable. There ismild mixed plaquing in the right carotid bulb and proximal ICA on two-dimensional scanning. Color flow and spectral Doppler interrogation are unremarkable on the right. Velocity chart right carotid: Right CCA PSV: 83 cm/S Right ICA PSV: 112 cm/S Right ICA EDV: 47 cm/S Right ECA PSV: 91 cm/S Right ICA/CCA ratio: 1.35 Left carotid: The left common carotid artery shows diffuse intimal thickening but is otherwise unremarkable. There is moderate mixed plaquing in the left carotid bulb and proximal ICA on two-dimensional scanning. Color flow and spectral Doppler interrogation are unremarkable on the left. Velocity chart left carotid: Left CCA PSV: 52 cm/S Left ICA PSV: 0 cm/S Left ICA EDV: 0 cm/S Left ECA PSV: 70 cm/S Left ICA/CCA ratio: 0 IMPRESSION: Less than 50% category narrowing in the right internal carotid artery by Doppler velocity criteria. Right ICA velocities have not changed substantially since the prior study Occlusion of the left ICA again noted as previously seen. <Electronically signed by Josep Sommers > 09/25/20 [id number]
== END ==
LOC: M RAD 10:42
PROVIDERS: ATTEND Surgery Vascular Surgery
DX: I65.23 Occlusion and stenosis of bilateral carotid arteries (principal)

== ENCOUNTER → 2021-03-18 | Outpatient (CLI) | payer MEDICARE ==
[2021-03-18 10:37] LABS: FREE T4 1.08 NG/DL (0.76-1.46); THYROID STIMULATING HORMONE 1.19 uIU/ML (0.358-3.740)
== END ==
LOC: M LAB 09:13
PROVIDERS: ATTEND Internal Medicine Endocrinology, Diabetes & Metabolism
DX: E89.0 Postprocedural hypothyroidism (principal)

== ENCOUNTER → 2021-04-29 | Outpatient (CLI) | payer MEDICARE ==
[2021-04-29 08:51] LABS: BASO % 0.7 % (0.0-1.0); EOS # 0.2 10^3/uL (0.0-0.5); EOS % 2.7 % (0.0-3.0); HEMATOCRIT 43.4 % (36.0-47.0); HEMOGLOBIN 14.3 g/dl (12.0-15.5); LYMPH # 1.5 10^3/uL (1.5-5.0); LYMPH % 25.1 % (24.0-44.0); MEAN CORPUSCULAR HGB CONC 32.9 g/dl (32.0-36.5); MEAN CORPUSCULAR VOLUME 94.1 fl (80.0-96.0); MONO # 0.6 10^3/uL (0.0-0.8); NEUTROPHILS # 3.6 10^3/uL (1.5-8.5); NEUTROPHILS % 61.3 % (36.0-66.0); PLATELET COUNT, AUTOMATED 216 10^3/uL (150-450); RED BLOOD COUNT 4.61 10^6/uL (4.00-5.40); WHITE BLOOD COUNT 5.9 10^3/uL (4.0-10.0)
[2021-04-29 09:20] LABS: ALBUMIN 4.1 GM/DL (3.2-5.2); ALT/SGPT 27 U/L (12-78); BILIRUBIN,TOTAL 0.8 MG/DL (0.2-1.0); BLOOD UREA NITROGEN 16 MG/DL (7-18); CALCIUM LEVEL 8.7 MG/DL (8.8-10.2); CARBON DIOXIDE LEVEL 29 MEQ/L (21-32); CHLORIDE LEVEL 107 MEQ/L (98-107); CHOLESTEROL LEVEL 177 MG/DL (<200); CHOLESTEROL RISK RATIO 4.116 (<5); CPK CREATINE PHOSPHOKINASE 59 U/L (26-192); GLOMERULAR FILTRATION RATE > 60.0 (>32); GLUCOSE, FASTING 97 MG/DL (70-100); HDL CHOLESTEROL 43 MG/DL (>40); LDL CHOLESTEROL 67 MG/DL (<100); NON-HDL-C 134 MG/DL; POTASSIUM SERUM 3.9 MEQ/L (3.5-5.1); SODIUM LEVEL 142 MEQ/L (136-145); TOTAL PROTEIN 7.5 GM/DL (6.4-8.2); TRIGLYCERIDES LEVEL 334 MG/DL (<150)
[2021-04-29 09:27] LABS: HEMOGLOBIN A1c 5.9 %
== END ==
LOC: M LAB 07:58
PROVIDERS: ATTEND Internal Medicine
DX: I10 Essential (primary) hypertension (principal); E78.00 Pure hypercholesterolemia, unspecified; E11.40 Type 2 diabetes mellitus with diabetic neuropathy, unspecified

== ENCOUNTER → 2021-08-07 | Outpatient (CLI) | payer MEDICARE ==
[2021-08-07 08:54] LABS: BASO % 0.6 % (0.0-1.0); EOS # 0.2 10^3/uL (0.0-0.5); EOS % 2.5 % (0.0-3.0); HEMATOCRIT 45.4 % (36.0-47.0); HEMOGLOBIN 14.8 g/dl (12.0-15.5); LYMPH # 1.2 10^3/uL (1.5-5.0); MEAN CORPUSCULAR HEMOGLOBIN 31.4 pg (27.0-33.0); MEAN CORPUSCULAR HGB CONC 32.6 g/dl (32.0-36.5); MEAN CORPUSCULAR VOLUME 96.4 fl (80.0-96.0); MONO # 0.7 10^3/uL (0.0-0.8); MONO % 10.2 % (2.0-8.0); NEUTROPHILS # 4.7 10^3/uL (1.5-8.5); NEUTROPHILS % 68.6 % (36.0-66.0); PLATELET COUNT, AUTOMATED 198 10^3/uL (150-450); RED BLOOD COUNT 4.71 10^6/uL (4.00-5.40); WHITE BLOOD COUNT 6.9 10^3/uL (4.0-10.0)
[2021-08-07 09:31] LABS: ALBUMIN 3.6 GM/DL (3.2-5.2); ALT/SGPT 30 U/L (12-78); BILIRUBIN,TOTAL 0.7 MG/DL (0.2-1.0); BLOOD UREA NITROGEN 17 MG/DL (7-18); CALCIUM LEVEL 8.5 MG/DL (8.8-10.2); CARBON DIOXIDE LEVEL 31 MEQ/L (21-32); CHLORIDE LEVEL 106 MEQ/L (98-107); CHOLESTEROL LEVEL 146 MG/DL (<200); CHOLESTEROL RISK RATIO 2.979 (<5); CPK CREATINE PHOSPHOKINASE 83 U/L (26-192); CREATININE FOR GFR 0.76 MG/DL (0.55-1.30); GLOMERULAR FILTRATION RATE > 60.0 (>32); GLUCOSE, FASTING 107 MG/DL (70-100); HDL CHOLESTEROL 49 MG/DL (>40); LDL CHOLESTEROL 46 MG/DL (<100); NON-HDL-C 97 MG/DL; POTASSIUM SERUM 4.4 MEQ/L (3.5-5.1); SODIUM LEVEL 142 MEQ/L (136-145); THYROID STIMULATING HORMONE 0.648 uIU/ML (0.358-3.740); TOTAL PROTEIN 7.2 GM/DL (6.4-8.2); TRIGLYCERIDES LEVEL 255 MG/DL (<150)
[2021-08-07 10:42] LABS: HEMOGLOBIN A1c 6.1 %
== END ==
LOC: M LAB 08:09
PROVIDERS: ATTEND Internal Medicine
DX: E78.00 Pure hypercholesterolemia, unspecified (principal); E11.40 Type 2 diabetes mellitus with diabetic neuropathy, unspecified; I10 Essential (primary) hypertension; Z85.850 Personal history of malignant neoplasm of thyroid; F41.9 Anxiety disorder, unspecified

== ENCOUNTER → 2021-09-18 | Outpatient (CLI) | payer MEDICARE ==
[2021-09-18 14:06] LABS: FREE T4 1.12 NG/DL (0.76-1.46); THYROID STIMULATING HORMONE 0.51 uIU/ML (0.358-3.740)
== END ==
LOC: M LAB 12:05
PROVIDERS: ATTEND Internal Medicine Endocrinology, Diabetes & Metabolism
DX: E89.0 Postprocedural hypothyroidism (principal)

== ENCOUNTER → 2021-10-01 | Outpatient (CLI) | payer MEDICARE ==
--- NOTE | 2021-10-01 14:51 | REP ---
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 Once again, according to the SRU criteria there is less than 50% stenosis of the right internal carotid artery. <Electronically signed by Wenceslao Myers > 10/01/21 [id number]
== END ==
LOC: M RAD 13:52
PROVIDERS: ATTEND Surgery Vascular Surgery
DX: I65.23 Occlusion and stenosis of bilateral carotid arteries (principal)

== ENCOUNTER → 2022-02-16 | Outpatient (CLI) | payer MEDICARE ==
[~2022-02-16] MED LIST changes: +LOSA50TA28 PO; -LOSA50TA88 PO
[2022-02-16 09:23] LABS: HEMATOCRIT 42.2 % (36.0-47.0); HEMOGLOBIN 13.8 g/dl (12.0-15.5); MEAN CORPUSCULAR HEMOGLOBIN 31.4 pg (27.0-33.0); MEAN CORPUSCULAR HGB CONC 32.7 g/dl (32.0-36.5); MEAN CORPUSCULAR VOLUME 95.9 fl (80.0-96.0); PLATELET COUNT, AUTOMATED 224 10^3/uL (150-450)
[2022-02-16 09:45] LABS: ALBUMIN 3.6 GM/DL (3.2-5.2); ALT/SGPT 33 U/L (12-78); BILIRUBIN,TOTAL 0.6 MG/DL (0.2-1.0); BLOOD UREA NITROGEN 18 MG/DL (7-18); CALCIUM LEVEL 8.9 MG/DL (8.8-10.2); CARBON DIOXIDE LEVEL 30 MEQ/L (21-32); CHLORIDE LEVEL 108 MEQ/L (98-107); CREATININE FOR GFR 0.69 MG/DL (0.55-1.30); GLOMERULAR FILTRATION RATE > 60.0 (>32); GLUCOSE, FASTING 99 MG/DL (70-100); MAGNESIUM LEVEL 2.2 MG/DL (1.8-2.4); POTASSIUM SERUM 4.3 MEQ/L (3.5-5.1); SODIUM LEVEL 143 MEQ/L (136-145); TOTAL PROTEIN 7.2 GM/DL (6.4-8.2)
== END ==
LOC: M LAB 08:03
PROVIDERS: ATTEND Internal Medicine
DX: I48.20 Chronic atrial fibrillation, unspecified (principal); E11.40 Type 2 diabetes mellitus with diabetic neuropathy, unspecified

== ENCOUNTER → 2022-03-03 | Outpatient (CLI) | payer MEDICARE ==
[2022-03-03 14:11] LABS: FREE T4 1.1 NG/DL (0.76-1.46); THYROID STIMULATING HORMONE 0.676 uIU/ML (0.358-3.740)
== END ==
LOC: M LAB 11:58
PROVIDERS: ATTEND Internal Medicine Endocrinology, Diabetes & Metabolism
DX: E89.0 Postprocedural hypothyroidism (principal)

== ENCOUNTER → 2022-05-31 | Outpatient (CLI) | payer MEDICARE ==
[2022-05-31 07:49] LABS: BASO % 0.6 % (0.0-1.0); EOS # 0.1 10^3/uL (0.0-0.5); EOS % 2.2 % (0.0-3.0); HEMATOCRIT 44.5 % (36.0-47.0); HEMOGLOBIN 14.7 g/dl (12.0-15.5); LYMPH # 1.4 10^3/uL (1.5-5.0); MEAN CORPUSCULAR HEMOGLOBIN 31.4 pg (27.0-33.0); MEAN CORPUSCULAR VOLUME 95.1 fl (80.0-96.0); MONO # 0.6 10^3/uL (0.0-0.8); MONO % 9.3 % (2.0-8.0); NEUTROPHILS # 4.3 10^3/uL (1.5-8.5); NEUTROPHILS % 66.6 % (36.0-66.0); PLATELET COUNT, AUTOMATED 229 10^3/uL (150-450); RED BLOOD COUNT 4.68 10^6/uL (4.00-5.40); WHITE BLOOD COUNT 6.5 10^3/uL (4.0-10.0)
[2022-05-31 08:10] LABS: HEMOGLOBIN A1c 5.9 %
[2022-05-31 08:18] LABS: BLOOD UREA NITROGEN 16 MG/DL (7-18); CALCIUM LEVEL 8.6 MG/DL (8.8-10.2); CARBON DIOXIDE LEVEL 28 MEQ/L (21-32); CHLORIDE LEVEL 108 MEQ/L (98-107); CHOLESTEROL LEVEL 150 MG/DL (<200); CHOLESTEROL RISK RATIO 2.884 (<5); CREATININE FOR GFR 0.85 MG/DL (0.55-1.30); GLOMERULAR FILTRATION RATE > 60.0 (>32); GLUCOSE, FASTING 104 MG/DL (70-100); HDL CHOLESTEROL 52 MG/DL (>40); LDL CHOLESTEROL 55 MG/DL (<100); NON-HDL-C 98 MG/DL; POTASSIUM SERUM 3.9 MEQ/L (3.5-5.1); SODIUM LEVEL 143 MEQ/L (136-145); TRIGLYCERIDES LEVEL 214 MG/DL (<150)
== END ==
LOC: M LAB 07:28
PROVIDERS: ATTEND Internal Medicine
DX: I42.9 Cardiomyopathy, unspecified (principal)

== ENCOUNTER → 2022-08-25 | Outpatient (CLI) | payer MEDICARE ==
[2022-08-25 09:00] LABS: FREE T4 1.03 NG/DL (0.76-1.46); THYROID STIMULATING HORMONE 1.4 uIU/ML (0.358-3.740)
== END ==
LOC: M LAB 07:16
PROVIDERS: ATTEND Internal Medicine Endocrinology, Diabetes & Metabolism
DX: C73 Malignant neoplasm of thyroid gland (principal)

== ENCOUNTER → 2022-08-25 | Outpatient (CLI) | payer MEDICARE ==
[2022-08-25 08:14] LABS: HEMATOCRIT 43.9 % (36.0-47.0); HEMOGLOBIN 14.3 g/dl (12.0-15.5); MEAN CORPUSCULAR HEMOGLOBIN 30.8 pg (27.0-33.0); MEAN CORPUSCULAR HGB CONC 32.6 g/dl (32.0-36.5); MEAN CORPUSCULAR VOLUME 94.6 fl (80.0-96.0); PLATELET COUNT, AUTOMATED 227 10^3/uL (150-450); RED BLOOD COUNT 4.64 10^6/uL (4.00-5.40); WHITE BLOOD COUNT 6.2 10^3/uL (4.0-10.0)
[2022-08-25 08:48] LABS: HEMOGLOBIN A1c 5.7 %
[2022-08-25 08:52] LABS: ALBUMIN 3.7 GM/DL (3.2-5.2); ALKALINE PHOSPHATASE 120 U/L (45-117); ALT/SGPT 25 U/L (12-78); AST/SGOT 19 U/L (7-37); BILIRUBIN,TOTAL 0.8 MG/DL (0.2-1.0); BLOOD UREA NITROGEN 19 MG/DL (7-18); CALCIUM LEVEL 8.9 MG/DL (8.8-10.2); CARBON DIOXIDE LEVEL 28 MEQ/L (21-32); CHLORIDE LEVEL 106 MEQ/L (98-107); CHOLESTEROL LEVEL 153 MG/DL (<200); CHOLESTEROL RISK RATIO 2.942 (<5); GLOMERULAR FILTRATION RATE > 60.0 (>32); GLUCOSE, FASTING 108 MG/DL (70-100); HDL CHOLESTEROL 52 MG/DL (>40); LDL CHOLESTEROL 60 MG/DL (<100); NON-HDL-C 101 MG/DL; SODIUM LEVEL 139 MEQ/L (136-145); TOTAL PROTEIN 7.3 GM/DL (6.4-8.2); TRIGLYCERIDES LEVEL 205 MG/DL (<150)
== END ==
LOC: M LAB 07:11
PROVIDERS: ATTEND Internal Medicine
DX: I48.20 Chronic atrial fibrillation, unspecified (principal); I10 Essential (primary) hypertension; E78.00 Pure hypercholesterolemia, unspecified; E11.40 Type 2 diabetes mellitus with diabetic neuropathy, unspecified

== ENCOUNTER → 2022-09-16 | Outpatient (CLI) | payer MEDICARE | LOC: M WHC 10:39 | PROVIDERS: ATTEND Surgery Vascular Surgery | DX: I65.29 Occlusion and stenosis of unspecified carotid artery (principal) ==

== ENCOUNTER → 2022-11-25 | Outpatient (CLI) | payer MEDICARE ==
[2022-11-25 07:41] LABS: BASO # 0.1 10^3/uL (0.0-0.2); BASO % 0.9 % (0.0-1.0); EOS # 0.2 10^3/uL (0.0-0.5); EOS % 3.2 % (0.0-3.0); HEMATOCRIT 41.6 % (36.0-47.0); HEMOGLOBIN 13.8 g/dl (12.0-15.5); LYMPH # 1.6 10^3/uL (1.5-5.0); LYMPH % 23.4 % (24.0-44.0); MEAN CORPUSCULAR HEMOGLOBIN 31.2 pg (27.0-33.0); MEAN CORPUSCULAR HGB CONC 33.2 g/dl (32.0-36.5); MEAN CORPUSCULAR VOLUME 94.1 fl (80.0-96.0); MONO # 0.7 10^3/uL (0.0-0.8); NEUTROPHILS # 4.3 10^3/uL (1.5-8.5); NEUTROPHILS % 62.4 % (36.0-66.0); PLATELET COUNT, AUTOMATED 206 10^3/uL (150-450); RED BLOOD COUNT 4.42 10^6/uL (4.00-5.40); WHITE BLOOD COUNT 6.9 10^3/uL (4.0-10.0)
[2022-11-25 08:15] LABS: ALBUMIN 3.7 G/DL (3.2-5.2); ALKALINE PHOSPHATASE 121 U/L (46-116); ALT/SGPT 24 U/L (7.0-40); AST/SGOT 27 U/L (<34); BILIRUBIN,TOTAL 0.8 MG/DL (0.3-1.2); BLOOD UREA NITROGEN 16 MG/DL (9-23); CALCIUM LEVEL 8.7 MG/DL (8.3-10.6); CARBON DIOXIDE LEVEL 31 MMOL/L (20-31); CHLORIDE LEVEL 106 MMOL/L (98-107); CHOLESTEROL LEVEL 138 MG/DL (<200); CHOLESTEROL RISK RATIO 2.92 (<5); CREATININE FOR GFR 0.64 MG/DL (0.55-1.30); GLOMERULAR FILTRATION RATE > 60.0 (>32); GLUCOSE, FASTING 99 MG/DL (74-106); HDL CHOLESTEROL 47.2 MG/DL (>40); LDL CHOLESTEROL 57.8 MG/DL (<100); NON-HDL-C 91 MG/DL; POTASSIUM SERUM 4.1 MMOL/L (3.5-5.1); SODIUM LEVEL 143 MMOL/L (136-145); TOTAL PROTEIN 6.8 G/DL (5.7-8.2); TRIGLYCERIDES LEVEL 165 MG/DL (<150)
[2022-11-25 09:27] LABS: HEMOGLOBIN A1c 5.6 % (4.0-6.0)
== END ==
LOC: M LAB 07:23
PROVIDERS: ATTEND Internal Medicine
DX: I10 Essential (primary) hypertension (principal); E78.00 Pure hypercholesterolemia, unspecified; E11.9 Type 2 diabetes mellitus without complications; E87.6 Hypokalemia

== ENCOUNTER → 2023-02-23 | Outpatient (CLI) | payer MEDICARE ==
[2023-02-23 08:30] LABS: BASO # 0.1 10^3/uL (0.0-0.2); BASO % 0.8 % (0.0-1.0); EOS # 0.2 10^3/uL (0.0-0.5); EOS % 2.8 % (0.0-3.0); HEMATOCRIT 43.6 % (36.0-47.0); HEMOGLOBIN 13.9 g/dl (12.0-15.5); LYMPH # 1.6 10^3/uL (1.5-5.0); LYMPH % 26.6 % (24.0-44.0); MEAN CORPUSCULAR HEMOGLOBIN 30.5 pg (27.0-33.0); MEAN CORPUSCULAR HGB CONC 31.9 g/dl (32.0-36.5); MEAN CORPUSCULAR VOLUME 95.8 fl (80.0-96.0); MONO # 0.6 10^3/uL (0.0-0.8); MONO % 10.4 % (2.0-8.0); NEUTROPHILS # 3.5 10^3/uL (1.5-8.5); NEUTROPHILS % 59.2 % (36.0-66.0); PLATELET COUNT, AUTOMATED 224 10^3/uL (150-450); RED BLOOD COUNT 4.55 10^6/uL (4.00-5.40)
[2023-02-23 09:00] LABS: ALBUMIN 3.8 G/DL (3.2-5.2); ALKALINE PHOSPHATASE 113 U/L (46-116); ALT/SGPT 19 U/L (7.0-40); AST/SGOT 22 U/L (<34); BILIRUBIN,TOTAL 0.8 MG/DL (0.3-1.2); BLOOD UREA NITROGEN 19 MG/DL (9-23); CALCIUM LEVEL 8.6 MG/DL (8.3-10.6); CARBON DIOXIDE LEVEL 32 MMOL/L (20-31); CHLORIDE LEVEL 104 MMOL/L (98-107); CHOLESTEROL LEVEL 143 MG/DL (<200); CHOLESTEROL RISK RATIO 2.83 (<5); CPK CREATINE PHOSPHOKINASE 48 U/L (34-145); CREATININE FOR GFR 0.72 MG/DL (0.55-1.30); GLOMERULAR FILTRATION RATE > 60.0 (>32); GLUCOSE, FASTING 87 MG/DL (74-106); HDL CHOLESTEROL 50.5 MG/DL (>40); LDL CHOLESTEROL 58.9 MG/DL (<100); MAGNESIUM LEVEL 1.8 MG/DL (1.8-2.4); NON-HDL-C 92.5 MG/DL; POTASSIUM SERUM 4.1 MMOL/L (3.5-5.1); SODIUM LEVEL 142 MMOL/L (136-145); TOTAL PROTEIN 6.9 G/DL (5.7-8.2); TRIGLYCERIDES LEVEL 168 MG/DL (<150)
[2023-02-23 09:01] LABS: HEMOGLOBIN A1c 5.9 % (4.0-6.0)
[2023-02-23 09:02] LABS: FREE T4 1.05 NG/DL (0.89-1.76); THYROID STIMULATING HORMONE 1.387 uIU/ML (0.55-4.78)
== END ==
LOC: M LAB 07:04
PROVIDERS: ATTEND Internal Medicine
DX: E11.40 Type 2 diabetes mellitus with diabetic neuropathy, unspecified (principal); I48.20 Chronic atrial fibrillation, unspecified; I10 Essential (primary) hypertension; E78.00 Pure hypercholesterolemia, unspecified; E03.9 Hypothyroidism, unspecified

== ENCOUNTER → 2023-06-15 | Outpatient (CLI) | payer MEDICARE ==
[2023-06-15 07:50] LABS: BASO # 0.1 10^3/uL (0.0-0.2); BASO % 0.8 % (0.0-1.0); EOS # 0.2 10^3/uL (0.0-0.5); EOS % 2.9 % (0.0-3.0); HEMATOCRIT 44.2 % (36.0-47.0); HEMOGLOBIN 14.4 g/dl (12.0-15.5); LYMPH # 1.7 10^3/uL (1.5-5.0); LYMPH % 27.7 % (24.0-44.0); MEAN CORPUSCULAR HEMOGLOBIN 31.1 pg (27.0-33.0); MEAN CORPUSCULAR HGB CONC 32.6 g/dl (32.0-36.5); MEAN CORPUSCULAR VOLUME 95.5 fl (80.0-96.0); MONO # 0.7 10^3/uL (0.0-0.8); MONO % 11.6 % (2.0-8.0); NEUTROPHILS # 3.6 10^3/uL (1.5-8.5); NEUTROPHILS % 56.8 % (36.0-66.0); PLATELET COUNT, AUTOMATED 232 10^3/uL (150-450); RED BLOOD COUNT 4.63 10^6/uL (4.00-5.40); WHITE BLOOD COUNT 6.3 10^3/uL (4.0-10.0)
[2023-06-15 08:01] LABS: APPEARANCE, URINE CLOUDY (CLEAR); BACTERIA, URINE AUTO 1+ (NEGATIVE); BILIRUBIN, URINE AUTO NEGATIVE (NEGATIVE); BLOOD, URINE BLOOD NEGATIVE (NEGATIVE); COLOR, URINE YELLOW (YELLOW); GLUCOSE, URINE (UA) AUTO NEGATIVE (NEGATIVE); KETONE, URINE AUTO NEGATIVE (NEGATIVE); LEUKOCYTE ESTERASE, URINE AUTO 3+ (NEGATIVE); MUCUS, URINE SMALL (NEGATIVE); NITRITE, URINE AUTO NEGATIVE (NEGATIVE); PROTEIN, URINE AUTO NEGATIVE (NEGATIVE); RBC, URINE AUTO 5 /HPF (0-3); SPECIFIC GRAVITY URINE AUTO 1.015 (1.002-1.035); SQUAMOUS EPITHELIAL CELL UR AU 17 /HPF (0-6); TRANSITIONAL EPITHELIAL AUTO 1 /HPF; UROBILINOGEN, URINE AUTO 0.2 mg/dL (0.0-2.0); WBC, URINE AUTO 21 /HPF (0-3)
[2023-06-15 08:10] LABS: HEMOGLOBIN A1c 5.7 % (4.0-6.0)
[2023-06-15 08:11] LABS: CREATININE, URINE 127.2 MG/DL
[2023-06-15 08:11] LABS: BLOOD UREA NITROGEN 17 MG/DL (9-23); CALCIUM LEVEL 8.7 MG/DL (8.3-10.6); CARBON DIOXIDE LEVEL 32 MMOL/L (20-31); CHLORIDE LEVEL 104 MMOL/L (98-107); CREATININE FOR GFR 0.73 MG/DL (0.55-1.30); GLOMERULAR FILTRATION RATE > 60.0 (>32); GLUCOSE, FASTING 96 MG/DL (74-106); SODIUM LEVEL 143 MMOL/L (136-145)
[2023-06-15 08:12] LABS: MAU/CREAT RATIO 5.5 MCG/MG (0.0-30.0)
== END ==
LOC: M LAB 06:54
PROVIDERS: ATTEND Internal Medicine
DX: I48.20 Chronic atrial fibrillation, unspecified (principal); I25.10 Atherosclerotic heart disease of native coronary artery without angina pectoris; E11.69 Type 2 diabetes mellitus with other specified complication

== ENCOUNTER → 2023-09-21 | Outpatient (CLI) | payer MEDICARE ==
[2023-09-21 07:23] LABS: BASO % 0.6 % (0.0-1.0); EOS # 0.2 10^3/uL (0.0-0.5); EOS % 2.5 % (0.0-3.0); HEMOGLOBIN 14.2 g/dl (12.0-15.5); LYMPH # 1.6 10^3/uL (1.5-5.0); LYMPH % 23.5 % (24.0-44.0); MEAN CORPUSCULAR HEMOGLOBIN 31.6 pg (27.0-33.0); MEAN CORPUSCULAR VOLUME 95.6 fl (80.0-96.0); MONO # 0.7 10^3/uL (0.0-0.8); MONO % 9.7 % (2.0-8.0); NEUTROPHILS # 4.3 10^3/uL (1.5-8.5); NEUTROPHILS % 63.6 % (36.0-66.0); PLATELET COUNT, AUTOMATED 224 10^3/uL (150-450); WHITE BLOOD COUNT 6.8 10^3/uL (4.0-10.0)
[2023-09-21 07:47] LABS: CPK CREATINE PHOSPHOKINASE 66 U/L (34-145)
[2023-09-21 07:56] LABS: ALBUMIN 3.8 G/DL (3.2-5.2); ALKALINE PHOSPHATASE 120 U/L (46-116); ALT/SGPT 24 U/L (7.0-40); AST/SGOT 22 U/L (<34); BILIRUBIN,TOTAL 0.8 MG/DL (0.3-1.2); BLOOD UREA NITROGEN 19 MG/DL (9-23); CALCIUM LEVEL 8.7 MG/DL (8.3-10.6); CARBON DIOXIDE LEVEL 31 MMOL/L (20-31); CHLORIDE LEVEL 104 MMOL/L (98-107); CHOLESTEROL LEVEL 137 MG/DL (<200); CHOLESTEROL RISK RATIO 3.05 (<5); CREATININE FOR GFR 0.65 MG/DL (0.55-1.30); FREE T4 1.07 NG/DL (0.89-1.76); GLOMERULAR FILTRATION RATE > 60.0 (>32); GLUCOSE, FASTING 96 MG/DL (74-106); HDL CHOLESTEROL 44.9 MG/DL (>40); LDL CHOLESTEROL 59.9 MG/DL (<100); NON-HDL-C 92.1 MG/DL; POTASSIUM SERUM 3.7 MMOL/L (3.5-5.1); SODIUM LEVEL 140 MMOL/L (136-145); THYROID STIMULATING HORMONE 0.961 uIU/ML (0.55-4.78); TOTAL PROTEIN 7.2 G/DL (5.7-8.2); TRIGLYCERIDES LEVEL 161 MG/DL (<150)
[2023-09-21 08:19] LABS: HEMOGLOBIN A1c 5.7 % (4.0-6.0)
== END ==
LOC: M LAB 06:22
PROVIDERS: ATTEND Internal Medicine
DX: E78.00 Pure hypercholesterolemia, unspecified (principal); I10 Essential (primary) hypertension; E89.0 Postprocedural hypothyroidism; E11.40 Type 2 diabetes mellitus with diabetic neuropathy, unspecified

== ENCOUNTER → 2023-09-28 | Outpatient (CLI) | payer MEDICARE | LOC: M RAD 13:08 | PROVIDERS: ATTEND Physician Assistant | DX: I65.21 Occlusion and stenosis of right carotid artery (principal) ==

== ENCOUNTER → 2024-01-18 | Outpatient (CLI) | payer MEDICARE ==
[2024-01-18 06:57] LABS: BASO # 0.1 10^3/uL (0.0-0.2); BASO % 0.9 % (0.0-1.0); EOS # 0.2 10^3/uL (0.0-0.5); EOS % 3.1 % (0.0-3.0); HEMATOCRIT 41.8 % (36.0-47.0); HEMOGLOBIN 13.8 g/dl (12.0-15.5); LYMPH # 1.5 10^3/uL (1.5-5.0); LYMPH % 25.6 % (24.0-44.0); MEAN CORPUSCULAR HEMOGLOBIN 31.1 pg (27.0-33.0); MEAN CORPUSCULAR VOLUME 94.1 fl (80.0-96.0); MONO # 0.7 10^3/uL (0.0-0.8); MONO % 11.3 % (2.0-8.0); NEUTROPHILS # 3.4 10^3/uL (1.5-8.5); NEUTROPHILS % 58.9 % (36.0-66.0); PLATELET COUNT, AUTOMATED 209 10^3/uL (150-450); RED BLOOD COUNT 4.44 10^6/uL (4.00-5.40); WHITE BLOOD COUNT 5.8 10^3/uL (4.0-10.0)
[2024-01-18 07:22] LABS: ALBUMIN 3.8 G/DL (3.2-5.2); ALKALINE PHOSPHATASE 110 U/L (46-116); ALT/SGPT 21 U/L (7.0-40); AST/SGOT 20 U/L (<34); BILIRUBIN,TOTAL 0.6 MG/DL (0.3-1.2); BLOOD UREA NITROGEN 20 MG/DL (9-23); CALCIUM LEVEL 8.3 MG/DL (8.3-10.6); CARBON DIOXIDE LEVEL 31 MMOL/L (20-31); CHLORIDE LEVEL 104 MMOL/L (98-107); CHOLESTEROL LEVEL 127 MG/DL (<200); CHOLESTEROL RISK RATIO 2.99 (<5); CREATININE FOR GFR 0.67 MG/DL (0.55-1.30); GLOMERULAR FILTRATION RATE > 60.0 (>32); GLUCOSE, FASTING 97 MG/DL (74-106); HDL CHOLESTEROL 42.4 MG/DL (>40); LDL CHOLESTEROL 41.2 MG/DL (<100); NON-HDL-C 84.6 MG/DL; POTASSIUM SERUM 3.9 MMOL/L (3.5-5.1); SODIUM LEVEL 141 MMOL/L (136-145); TOTAL PROTEIN 6.9 G/DL (5.7-8.2); TRIGLYCERIDES LEVEL 217 MG/DL (<150)
[2024-01-18 07:24] LABS: THYROID STIMULATING HORMONE 1.546 uIU/ML (0.55-4.78)
[2024-01-18 07:53] LABS: HEMOGLOBIN A1c 5.8 % (4.0-6.0)
== END ==
LOC: M LAB 06:26
PROVIDERS: ATTEND Internal Medicine
DX: E11.40 Type 2 diabetes mellitus with diabetic neuropathy, unspecified (principal); E78.00 Pure hypercholesterolemia, unspecified; I10 Essential (primary) hypertension; Z79.01 Long term (current) use of anticoagulants

== ENCOUNTER 2024-02-14 11:00 | Inpatient (IN) | payer MEDICARE ==
[~2024-02-14] VITALS: Ht 154.9 cm; Wt 71.8 kg
[2024-02-14] MEDS ORDERED: CLOP75TA2 PO (11:14)
[2024-02-14 11:35] LABS: BASO % 0.2 % (0.0-1.0); EOS # 0.1 10^3/uL (0.0-0.5); EOS % 0.3 % (0.0-3.0); HEMATOCRIT 43.4 % (36.0-47.0); HEMOGLOBIN 14.6 g/dl (12.0-15.5); LYMPH # 0.8 10^3/uL (1.5-5.0); LYMPH % 4.7 % (24.0-44.0); MEAN CORPUSCULAR HEMOGLOBIN 31.7 pg (27.0-33.0); MEAN CORPUSCULAR HGB CONC 33.6 g/dl (32.0-36.5); MEAN CORPUSCULAR VOLUME 94.1 fl (80.0-96.0); MONO # 0.9 10^3/uL (0.0-0.8); MONO % 5.3 % (2.0-8.0); NEUTROPHILS # 15.8 10^3/uL (1.5-8.5); NEUTROPHILS % 89.2 % (36.0-66.0); PLATELET COUNT, AUTOMATED 223 10^3/uL (150-450); RED BLOOD COUNT 4.61 10^6/uL (4.00-5.40); WHITE BLOOD COUNT 17.7 10^3/uL (4.0-10.0)
[2024-02-14 11:47] LABS: INR 1.13; PROTHROMBIN TIME 14.2 SECONDS (12.5-14.5)
[2024-02-14 12:04] LABS: LIPASE 54 U/L (12-53)
[2024-02-14 12:05] LABS: CPK CREATINE PHOSPHOKINASE 52 U/L (34-145)
[2024-02-14] MEDS: ONDANSETRON 4MG 2ML VIAL IV ONE ×2 (12:05→13:33)
[2024-02-14 12:06] LABS: ALBUMIN 3.6 G/DL (3.2-5.2); ALKALINE PHOSPHATASE 116 U/L (46-116); ALT/SGPT 25 U/L (7.0-40); AST/SGOT 23 U/L (<34); BILIRUBIN,DIRECT 0.3 MG/DL (<0.4); BLOOD UREA NITROGEN 20 MG/DL (9-23); CALCIUM LEVEL 8.6 MG/DL (8.3-10.6); CARBON DIOXIDE LEVEL 26 MMOL/L (20-31); CHLORIDE LEVEL 105 MMOL/L (98-107); CK-MB VALUE MASS < 1.0 NG/ML (<3.6); CREATININE FOR GFR 0.62 MG/DL (0.55-1.30); GLOMERULAR FILTRATION RATE > 60.0 (>32); GLUCOSE, FASTING 139 MG/DL (74-106); MB/CK RELATIVE INDEX 1.92 (< OR =4); POTASSIUM SERUM 3.8 MMOL/L (3.5-5.1); SODIUM LEVEL 137 MMOL/L (136-145)
[2024-02-14 12:55] LABS: CK-MB VALUE MASS < 1.0 NG/ML (<3.6)
[2024-02-14 13:00] LABS: CPK CREATINE PHOSPHOKINASE 62 U/L (34-145); MB/CK RELATIVE INDEX 1.61 (< OR =4)
[2024-02-14] MEDS: NS 1,000 ML IV ONE (13:33)
[2024-02-14] MEDS ORDERED: ISOVUE-370 76% 100ML VIAL As Ordered ONE (13:40)
[2024-02-14] MEDS: cefTRIAXone SOD 1 GM in D5W MINI-BAG PLUS 50 ML IV ONE (14:48)
[2024-02-14] MEDS: D5W/0.45% SODIUM CHLORIDE 1,000 ML IV SCH (14:55)
[2024-02-14] MEDS: metroNIDAZOLE 500 MG in IV 1 EA IV ONE (15:56)
[2024-02-14] MEDS ORDERED: TYLE650T38 PO (17:32)
[2024-02-14] MEDS ORDERED: DICL20GE TOP (17:32)
[2024-02-14] MEDS ORDERED: CARV6.25 PO (17:32)
[2024-02-14] MEDS ORDERED: ATOR40TA75 PO (17:32)
[2024-02-14] MEDS ORDERED: LORA-1041 PO (17:32)
[2024-02-14] MEDS ORDERED: AZEL1SPR3 NARES (17:32)
[2024-02-14] MEDS ORDERED: COQ1200C3 PO (17:32)
[2024-02-14] MEDS ORDERED: PANT20TA6 PO (17:35)
[2024-02-14] MEDS ORDERED: BUSP10TA PO (17:35)
[2024-02-14] MEDS ORDERED: HOME MED LIST COMPLETE! XX SCH (17:40)
[2024-02-14] MEDS ORDERED: SUCRALFATE SUSP 1GM/10ML UD PO SCH (18:00)
[2024-02-14] MEDS: SUCRALFATE SUSP 1GM/10ML UD PO SCH (18:04)
[2024-02-14 18:29] LABS: PROCALCITONIN 0.47 ng/ml
[2024-02-14] MEDS ORDERED: FAMOTIDINE 20 MG TAB PO SCH (21:00)
[2024-02-14] MEDS: AZELASTINE 137MCG NASAL SPY 30 ML (ASTELIN) SCH (21:00)
[2024-02-14] MEDS ORDERED: APIXABAN 5 MG TAB (ELIQUIS) PO SCH (21:00)
[2024-02-14] MEDS: metroNIDAZOLE (FLAGYL) 500MG TABLET PO SCH (22:22)
[2024-02-14] MEDS: ATORVASTATIN 20 MG TAB PO SCH (22:22)
[2024-02-14] MEDS: GABAPENTIN 300 MG CAP PO SCH (22:23)
[2024-02-14 22:24] VITALS: BP 111/65
[2024-02-14] MEDS: PANTOPRAZOLE 40MG VIAL IV SCH (22:24)
[2024-02-14] MEDS: CARVedilol 3.125 MG TAB PO SCH (22:24)
[2024-02-15 00:08] LABS: CK-MB VALUE MASS 5.4 NG/ML (<3.6); HEMATOCRIT 40.3 % (36.0-47.0); HEMOGLOBIN 13.4 g/dl (12.0-15.5)
[2024-02-15 00:44] LABS: MB/CK RELATIVE INDEX 1.23 (< OR =4)
[2024-02-15] MEDS: LEVOTHYROXINE 50MCG TABLET (0.05MG) PO SCH (05:57)
[2024-02-15] MEDS: CIPROFLOXACIN 250MG TAB PO SCH (05:57)
[2024-02-15 06:24] LABS: BASO % 0.3 % (0.0-1.0); EOS % 0.3 % (0.0-3.0); HEMOGLOBIN 13.6 g/dl (12.0-15.5); LYMPH # 0.7 10^3/uL (1.5-5.0); LYMPH % 8.1 % (24.0-44.0); MEAN CORPUSCULAR HEMOGLOBIN 31.3 pg (27.0-33.0); MEAN CORPUSCULAR HGB CONC 33.2 g/dl (32.0-36.5); MEAN CORPUSCULAR VOLUME 94.5 fl (80.0-96.0); MONO % 10.7 % (2.0-8.0); NEUTROPHILS # 7.3 10^3/uL (1.5-8.5); NEUTROPHILS % 80.3 % (36.0-66.0); PLATELET COUNT, AUTOMATED 198 10^3/uL (150-450); RED BLOOD COUNT 4.34 10^6/uL (4.00-5.40)
[2024-02-15 07:12] LABS: BLOOD UREA NITROGEN 16 MG/DL (9-23); CALCIUM LEVEL 8.3 MG/DL (8.3-10.6); CARBON DIOXIDE LEVEL 26 MMOL/L (20-31); CHLORIDE LEVEL 106 MMOL/L (98-107); CREATININE FOR GFR 0.73 MG/DL (0.55-1.30); GLOMERULAR FILTRATION RATE > 60.0 (>32); GLUCOSE, FASTING 115 MG/DL (74-106); POTASSIUM SERUM 3.7 MMOL/L (3.5-5.1); SODIUM LEVEL 139 MMOL/L (136-145)
[2024-02-15] MEDS ORDERED: LOPERAMIDE 2 MG CAPLET PO PRN (07:15)
[2024-02-15] MEDS ORDERED: LOPERAMIDE 2 MG CAPLET PO ONE (07:45)
[2024-02-15 08:55] LABS: PROCALCITONIN 0.32 ng/ml
[2024-02-15] MEDS ORDERED: CLOPIDOGREL 75 MG TAB PO SCH (09:00)
[2024-02-15] MEDS ORDERED: ASPIRIN 81MG CHEW TABLET PO SCH (09:00)
[2024-02-15 09:15] VITALS: BP 126/55; TEMP 97.7; O2SAT 96
[2024-02-15] MEDS: PANTOPRAZOLE 40MG TAB (PROTONIX) PO SCH (10:23)
[2024-02-15] MEDS: ASPIRIN 81MG CHEW TABLET PO SCH (10:24)
[2024-02-15] MEDS: CLOPIDOGREL 75 MG TAB PO SCH (10:24)
[2024-02-15] MEDS ORDERED: CIPR-250 PO (11:30)
[2024-02-15] MEDS ORDERED: BACI1CAP PO (11:30)
[2024-02-15] MEDS ORDERED: PROT1TAB2 PO (11:30)
[2024-02-15] MEDS ORDERED: SUCR1SS PO (11:30)
[2024-02-15] MEDS ORDERED: METR-265 PO (11:30)
[2024-02-15 13:30] VITALS: O2SAT 94
[2024-02-17 16:09] LABS: Chitobioside Carbohydrat (ACCA 13 units (0-90); Laminaribioside Carbohyd (ALCA 4 units (0-60); Mannobioside Carbohydrat (AMCA 2 units (0-100); Saccharomyces cerevisiae IgG A 26 units (0-50)
== END 2024-02-15 13:45 | disposition home or self-care (01) | DRG 392 ==
LOC: M ED 16:19 → M ED INP 02-15 00:09 → M MS5PR 02-15 09:05
PROVIDERS: ADMIT General Practice; ATTEND General Practice
DX: A08.11 Acute gastroenteropathy due to Norwalk agent (principal); I48.20 Chronic atrial fibrillation, unspecified; R07.89 Other chest pain; I25.10 Atherosclerotic heart disease of native coronary artery without angina pectoris; E78.5 Hyperlipidemia, unspecified; I10 Essential (primary) hypertension; R73.03 Prediabetes; E03.9 Hypothyroidism, unspecified; Z79.01 Long term (current) use of anticoagulants; Z79.82 Long term (current) use of aspirin; Z79.890 Hormone replacement therapy; Z79.899 Other long term (current) drug therapy; Z11.52 Encounter for screening for COVID-19; Z95.5 Presence of coronary angioplasty implant and graft

== ENCOUNTER → 2024-05-23 | Outpatient (CLI) | payer MEDICARE ==
[~2024-05-23] MED LIST changes: +ATOR40TA75 PO; +AZEL1SPR3 NARES; +BACI1CAP PO; +BUSP10TA PO; +CARV6.25 PO; +CIPR-250 PO; +CLOP75TA2 PO; +COQ1200C3 PO; +DICL20GE TOP; +LORA-1041 PO; +METR-265 PO; +ONDA-282 PO; -ONDA4TAB6 PO; +PANT20TA6 PO; +PROT1TAB2 PO; +SUCR1SS PO; +TYLE650T38 PO
[2024-05-23 07:18] LABS: HEMATOCRIT 41.7 % (36.0-47.0); HEMOGLOBIN 13.8 g/dl (12.0-15.5); MEAN CORPUSCULAR HEMOGLOBIN 31.7 pg (27.0-33.0); MEAN CORPUSCULAR HGB CONC 33.1 g/dl (32.0-36.5); MEAN CORPUSCULAR VOLUME 95.6 fl (80.0-96.0); PLATELET COUNT, AUTOMATED 226 10^3/uL (150-450); RED BLOOD COUNT 4.36 10^6/uL (4.00-5.40)
[2024-05-23 07:36] LABS: HEMOGLOBIN A1c 5.6 % (4.0-6.0)
[2024-05-23 07:48] LABS: CPK CREATINE PHOSPHOKINASE 48 U/L (34-145)
[2024-05-23 07:49] LABS: ALBUMIN 3.7 G/DL (3.2-5.2); ALKALINE PHOSPHATASE 116 U/L (46-116); ALT/SGPT 17 U/L (7.0-40); AST/SGOT 15 U/L (<34); BILIRUBIN,TOTAL 0.8 MG/DL (0.3-1.2); BLOOD UREA NITROGEN 16 MG/DL (9-23); CALCIUM LEVEL 8.7 MG/DL (8.3-10.6); CARBON DIOXIDE LEVEL 31 MMOL/L (20-31); CHLORIDE LEVEL 108 MMOL/L (98-107); CHOLESTEROL LEVEL 150 MG/DL (<200); CREATININE FOR GFR 0.68 MG/DL (0.55-1.30); GLOMERULAR FILTRATION RATE > 60.0 (>32); GLUCOSE, FASTING 98 MG/DL (74-106); LDL CHOLESTEROL 66.4 MG/DL (<100); MAGNESIUM LEVEL 2.2 MG/DL (1.8-2.4); POTASSIUM SERUM 4.3 MMOL/L (3.5-5.1); SODIUM LEVEL 142 MMOL/L (136-145); TRIGLYCERIDES LEVEL 198 MG/DL (<150)
[2024-05-23 07:51] LABS: THYROID STIMULATING HORMONE 1.463 uIU/ML (0.55-4.78)
[2024-05-23 09:22] LABS: APPEARANCE, URINE MANUAL CLEAR (CLEAR); BILIRUBIN, URINE MANUAL NEGATIVE (NEGATIVE); COLOR, URINE MANUAL YELLOW (YELLOW); GLUCOSE, URINE (UA) MANUAL NEGATIVE (NEGATIVE); KETONE, URINE MANUAL NEGATIVE (NEGATIVE); NITRITE, URINE MANUAL NEGATIVE (NEGATIVE); PROTEIN, URINE MANUAL NEGATIVE (NEGATIVE); SPECIFIC GRAVITY,URINE MANUAL 1.015 (1.002-1.035); UROBILINOGEN, URINE MANUAL NORMAL (NORMAL)
[2024-05-23 09:23] LABS: BLOOD URINE MANUAL NEGATIVE (NEGATIVE); LEUKOCYTE ESTERASE, URINE MAN POSITIVE (NEGATIVE)
[2024-05-23 09:28] LABS: RBC, URINE NONE SEEN /hpf (0-3); SQUAMOUS EPITHELIAL CELL URINE SMALL AMOUNT /hpf (SMALL AMT)
[2024-05-23 09:29] LABS: BACTERIA, URINE NONE SEEN; HYALINE CAST, URINE NONE SEEN /lpf (0-1)
[2024-05-23 09:49] LABS: CREATININE, URINE 60.1 MG/DL; MAU/CREAT RATIO 6.6 MCG/MG (0.0-30.0)
== END ==
LOC: M LAB 06:38
PROVIDERS: ATTEND Internal Medicine
DX: I11.9 Hypertensive heart disease without heart failure (principal); E11.40 Type 2 diabetes mellitus with diabetic neuropathy, unspecified; E89.0 Postprocedural hypothyroidism

== ENCOUNTER → 2024-08-23 | Outpatient (CLI) | payer MEDICARE ==
[~2024-08-23] MED LIST changes: +GABA-1490 PO; -GABA600T4 PO
[2024-08-23 07:22] LABS: BASO % 0.6 % (0.0-1.0); EOS # 0.2 10^3/uL (0.0-0.5); EOS % 2.6 % (0.0-3.0); HEMOGLOBIN 13.5 g/dl (12.0-15.5); LYMPH # 1.7 10^3/uL (1.5-5.0); LYMPH % 25.2 % (24.0-44.0); MEAN CORPUSCULAR HGB CONC 32.9 g/dl (32.0-36.5); MONO # 0.7 10^3/uL (0.0-0.8); MONO % 10.8 % (2.0-8.0); NEUTROPHILS % 60.3 % (36.0-66.0); PLATELET COUNT, AUTOMATED 224 10^3/uL (150-450); RED BLOOD COUNT 4.36 10^6/uL (4.00-5.40); WHITE BLOOD COUNT 6.6 10^3/uL (4.0-10.0)
[2024-08-23 07:43] LABS: ALBUMIN 3.7 G/DL (3.2-5.2); ALKALINE PHOSPHATASE 112 U/L (46-116); ALT/SGPT 19 U/L (7.0-40); AST/SGOT 18 U/L (<34); BILIRUBIN,TOTAL 0.8 MG/DL (0.3-1.2); BLOOD UREA NITROGEN 18 MG/DL (9-23); CALCIUM LEVEL 9.1 MG/DL (8.3-10.6); CARBON DIOXIDE LEVEL 31 MMOL/L (20-31); CHLORIDE LEVEL 106 MMOL/L (98-107); CHOLESTEROL LEVEL 140 MG/DL (<200); CHOLESTEROL RISK RATIO 3.09 (<5); CREATININE FOR GFR 0.69 MG/DL (0.55-1.30); GLOMERULAR FILTRATION RATE > 60.0 (>32); GLUCOSE, FASTING 91 MG/DL (74-106); HDL CHOLESTEROL 45.3 MG/DL (>40); LDL CHOLESTEROL 61.1 MG/DL (<100); NON-HDL-C 94.7 MG/DL; SODIUM LEVEL 141 MMOL/L (136-145); TOTAL PROTEIN 7.3 G/DL (5.7-8.2); TRIGLYCERIDES LEVEL 168 MG/DL (<150)
[2024-08-23 08:32] LABS: HEMOGLOBIN A1c 5.8 % (4.0-6.0)
== END ==
LOC: M LAB 06:24
PROVIDERS: ATTEND Internal Medicine
DX: E78.00 Pure hypercholesterolemia, unspecified (principal); I10 Essential (primary) hypertension; E11.40 Type 2 diabetes mellitus with diabetic neuropathy, unspecified

== ENCOUNTER → 2024-11-19 | Outpatient (CLI) | payer MEDICARE | LOC: M RAD 08:31 | PROVIDERS: ATTEND Physician Assistant | DX: I65.22 Occlusion and stenosis of left carotid artery (principal) ==

== ENCOUNTER → 2024-12-01 | Outpatient (CLI) | payer MEDICARE ==
[2024-12-01 09:23] LABS: BASO # 0.1 10^3/uL (0.0-0.2); BASO % 0.9 % (0.0-1.0); EOS # 0.2 10^3/uL (0.0-0.5); EOS % 3.2 % (0.0-3.0); HEMATOCRIT 41.3 % (36.0-47.0); HEMOGLOBIN 13.7 g/dl (12.0-15.5); LYMPH # 1.4 10^3/uL (1.5-5.0); LYMPH % 26.5 % (24.0-44.0); MEAN CORPUSCULAR HEMOGLOBIN 31.9 pg (27.0-33.0); MEAN CORPUSCULAR HGB CONC 33.2 g/dl (32.0-36.5); MONO # 0.6 10^3/uL (0.0-0.8); MONO % 11.9 % (2.0-8.0); NEUTROPHILS # 3.1 10^3/uL (1.5-8.5); NEUTROPHILS % 57.1 % (36.0-66.0); PLATELET COUNT, AUTOMATED 219 10^3/uL (150-450); WHITE BLOOD COUNT 5.4 10^3/uL (4.0-10.0)
[2024-12-01 09:33] LABS: CPK CREATINE PHOSPHOKINASE 59 U/L (34-145)
[2024-12-01 09:34] LABS: ALBUMIN 3.7 G/DL (3.2-5.2); ALKALINE PHOSPHATASE 121 U/L (35-104); ALT/SGPT 20 U/L (7.0-40); AST/SGOT 18 U/L (<34); BILIRUBIN,TOTAL 0.7 MG/DL (0.3-1.2); BLOOD UREA NITROGEN 17 MG/DL (9-23); CALCIUM LEVEL 9.2 MG/DL (8.3-10.6); CARBON DIOXIDE LEVEL 31 MMOL/L (20-31); CHLORIDE LEVEL 107 MMOL/L (98-107); CHOLESTEROL LEVEL 151 MG/DL (<200); CHOLESTEROL RISK RATIO 2.88 (<5); CREATININE FOR GFR 0.66 MG/DL (0.55-1.30); GLOMERULAR FILTRATION RATE > 60.0 (>32); GLUCOSE, FASTING 95 MG/DL (74-106); HDL CHOLESTEROL 52.3 MG/DL (>40); LDL CHOLESTEROL 66.3 MG/DL (<100); NON-HDL-C 98.7 MG/DL; POTASSIUM SERUM 4.4 MMOL/L (3.5-5.1); SODIUM LEVEL 146 MMOL/L (136-145); THYROID STIMULATING HORMONE 0.771 uIU/ML (0.55-4.78); TOTAL PROTEIN 7.5 G/DL (5.7-8.2); TRIGLYCERIDES LEVEL 162 MG/DL (<150)
[2024-12-01 09:38] LABS: HEMOGLOBIN A1c 5.8 % (4.0-6.0)
== END ==
LOC: M LAB 08:06
PROVIDERS: ATTEND Internal Medicine
DX: K21.9 Gastro-esophageal reflux disease without esophagitis (principal); E11.69 Type 2 diabetes mellitus with other specified complication; I11.9 Hypertensive heart disease without heart failure; R74.9 Abnormal serum enzyme level, unspecified; F41.9 Anxiety disorder, unspecified

== ENCOUNTER → 2025-03-04 | Outpatient (CLI) | payer MEDICARE ==
[2025-03-04 08:21] LABS: BASO # 0.1 10^3/uL (0.0-0.2); BASO % 0.7 % (0.0-1.0); EOS # 0.2 10^3/uL (0.0-0.5); EOS % 2.3 % (0.0-3.0); HEMATOCRIT 43.9 % (36.0-47.0); HEMOGLOBIN 14.1 g/dl (12.0-15.5); LYMPH # 1.6 10^3/uL (1.5-5.0); LYMPH % 23.8 % (24.0-44.0); MEAN CORPUSCULAR HEMOGLOBIN 31.3 pg (27.0-33.0); MEAN CORPUSCULAR HGB CONC 32.1 g/dl (32.0-36.5); MEAN CORPUSCULAR VOLUME 97.3 fl (80.0-96.0); MONO # 0.7 10^3/uL (0.0-0.8); MONO % 9.4 % (2.0-8.0); NEUTROPHILS # 4.4 10^3/uL (1.5-8.5); NEUTROPHILS % 63.7 % (36.0-66.0); PLATELET COUNT, AUTOMATED 232 10^3/uL (150-450); RED BLOOD COUNT 4.51 10^6/uL (4.00-5.40); WHITE BLOOD COUNT 6.9 10^3/uL (4.0-10.0)
[2025-03-04 08:33] LABS: HEMOGLOBIN A1c 5.4 % (4.0-6.0)
[2025-03-04 08:44] LABS: ALBUMIN 3.9 G/DL (3.2-5.2); BILIRUBIN,TOTAL 0.8 MG/DL (0.3-1.2); CALCIUM LEVEL 8.8 MG/DL (8.3-10.6); CHOLESTEROL RISK RATIO 3.38 (<5); CREATININE FOR GFR 0.76 MG/DL (0.55-1.30); GLOMERULAR FILTRATION RATE 75.3 (>32); HDL CHOLESTEROL 44.9 MG/DL (>40); LDL CHOLESTEROL 46.1 MG/DL (<100); MAGNESIUM LEVEL 2.1 MG/DL (1.8-2.4); NON-HDL-C 107.1 MG/DL; TOTAL PROTEIN 7.4 G/DL (5.7-8.2)
[2025-03-04 08:46] LABS: THYROID STIMULATING HORMONE 0.854 uIU/ML (0.55-4.78)
== END ==
LOC: M LAB 07:32
PROVIDERS: ATTEND Internal Medicine
DX: E78.00 Pure hypercholesterolemia, unspecified (principal); E11.40 Type 2 diabetes mellitus with diabetic neuropathy, unspecified; F41.9 Anxiety disorder, unspecified; I10 Essential (primary) hypertension

== ENCOUNTER → 2025-11-02 | Outpatient (CLI) | payer MEDICARE ==
[2025-11-02 09:25] LABS: BASO # 0.0 10^3/uL (0.0-0.2); BASO % 0.8 % (0.0-1.0); EOS # 0.1 10^3/uL (0.0-0.5); EOS % 2.1 % (0.0-3.0); LYMPH # 1.1 10^3/uL (1.5-5.0); LYMPH % 21.5 % (24.0-44.0); MONO # 0.6 10^3/uL (0.0-0.8); MONO % 10.8 % (2.0-8.0); NEUTROPHILS # 3.4 10^3/uL (1.5-8.5); NEUTROPHILS % 64.6 % (36.0-66.0); PLATELET COUNT, AUTOMATED 235 10^3/uL (150-450)
[2025-11-02 09:50] LABS: ALT/SGPT 21.0 U/L (7.0-40); AST/SGOT 23.0 U/L (<34); CALCIUM LEVEL 8.7 MG/DL (8.3-10.6); CARBON DIOXIDE LEVEL 29.0 MMOL/L (20-31); CHLORIDE LEVEL 105.0 MMOL/L (98-107); CHOLESTEROL LEVEL 138.0 MG/DL (<200); CHOLESTEROL RISK RATIO 2.95 (<5); CPK CREATINE PHOSPHOKINASE 36.0 U/L (34-145); CREATININE FOR GFR 0.73 MG/DL (0.55-1.30); GLOMERULAR FILTRATION RATE 79.1 (>32); LDL CHOLESTEROL 51.1 MG/DL (<100); MAGNESIUM LEVEL 2.2 MG/DL (1.8-2.4); NON-HDL-C 91.3 MG/DL; POTASSIUM SERUM 4.2 MMOL/L (3.5-5.1); SODIUM LEVEL 142.0 MMOL/L (136-145); TRIGLYCERIDES LEVEL 201.0 MG/DL (<150)
[2025-11-02 10:09] LABS: ESTIMATED AVERAGE GLUCOSE 117.0 MG/DL (60-110)
== END ==
LOC: M LAB 08:24
PROVIDERS: ATTEND Internal Medicine
DX: E11.40 Type 2 diabetes mellitus with diabetic neuropathy, unspecified (principal); I25.10 Atherosclerotic heart disease of native coronary artery without angina pectoris; I11.9 Hypertensive heart disease without heart failure